=== PATIENT | female | born 1980 | race Caucasian/White ===

== ENCOUNTER 2024-10-11 09:25 | Outpatient (RCR) | payer MEDICAID, SELFPAY | END 2024-10-20 23:59 | disposition home or self-care (01) | LOC: SCTC 09:25 | PROVIDERS: PCP Nurse Practitioner Family; Referring Provider Nurse Practitioner Family; Visit Provider Nurse Practitioner Family | DX: N83.202 Unspecified ovarian cyst, left side (principal); N83.201 Unspecified ovarian cyst, right side; Z80.49 Family history of malignant neoplasm of other genital organs; Z80.8 Family history of malignant neoplasm of other organs or systems; Z80.3 Family history of malignant neoplasm of breast; Z98.84 Bariatric surgery status; E03.9 Hypothyroidism, unspecified; F32.A Depression, unspecified; R74.01 Elevation of levels of liver transaminase levels | CPT/HCPCS: 99212; G0463 ==

== ENCOUNTER → 2024-11-16 | Outpatient (CLI) | payer MEDICAID, SELFPAY ==
--- NOTE | 2024-11-16 16:16 | XR_ITS ---
Examination: Bilateral feet 6 views Technique: AP oblique lateral each foot total 6 views Exam date and time: November 16, 2024 1623 hrs. Indications: Bilateral throbbing foot pain 6 months. Findings: Mild osteopenia No fracture or dislocation involving either foot No erosive or other significant arthritic change involving either foot No plantar bony calcaneal spurs. No cortical bone destruction No opaque foreign bodies Impression: No fracture or dislocation involving either foot No erosive or other significant arthritic change involving either foot
--- NOTE | 2024-11-16 16:16 | XR_ITS ---
Examination: Facial bones 4 views Technique: Yadi Purvis lateral submentovertex facial series 4 views Exam date and time: 06/16/2024 6 1623 hrs. Indications: Injury to the face 4 days ago with nose pain. Findings: Orbital rims appear intact Large polyp or retention cyst in the right maxillary antrum Opacity in the frontal air cells No nasal bone fracture Maxilla mandible intact Impression: No acute facial fracture
== END | disposition home or self-care (01) ==
LOC: CDIM 16:07
PROVIDERS: Referring Provider Nurse Practitioner Family; Visit Provider Nurse Practitioner Family
DX: M79.671 Pain in right foot (principal); M79.672 Pain in left foot; S09.92XA Unspecified injury of nose, initial encounter; X58.XXXA Exposure to other specified factors, initial encounter
CPT/HCPCS: 70150; 73630

== ENCOUNTER → 2024-11-16 | Outpatient (BNVA) | payer MEDICAID, SELFPAY | END | disposition home or self-care (01) | PROVIDERS: PCP Nurse Practitioner Family; Referring Provider Nurse Practitioner Family; Visit Provider Nurse Practitioner Family | DX: M79.672 Pain in left foot (principal); M79.671 Pain in right foot; F32.1 Major depressive disorder, single episode, moderate; F41.9 Anxiety disorder, unspecified; S09.92XA Unspecified injury of nose, initial encounter | CPT/HCPCS: 96372; 99214; J1885 ==

== ENCOUNTER → 2024-12-31 | Outpatient (BNVA) | payer MEDICAID, SELFPAY | END | disposition home or self-care (01) | PROVIDERS: PCP Nurse Practitioner Family; Referring Provider Nurse Practitioner Family; Visit Provider Nurse Practitioner Family | DX: E03.9 Hypothyroidism, unspecified (principal); F41.9 Anxiety disorder, unspecified; D52.9 Folate deficiency anemia, unspecified; E78.5 Hyperlipidemia, unspecified; R94.5 Abnormal results of liver function studies; R79.9 Abnormal finding of blood chemistry, unspecified | CPT/HCPCS: 99214 ==

== ENCOUNTER 2025-01-02 14:08 | Outpatient (RCR) | payer MEDICAID, SELFPAY | END 2025-01-18 23:59 | disposition home or self-care (01) | LOC: SCTC 14:08 | PROVIDERS: PCP Nurse Practitioner Family; Referring Provider Nurse Practitioner Primary Care; Visit Provider Nurse Practitioner Family | DX: D75.89 Other specified diseases of blood and blood-forming organs (principal); Z80.49 Family history of malignant neoplasm of other genital organs; Z80.3 Family history of malignant neoplasm of breast; Z80.8 Family history of malignant neoplasm of other organs or systems; Z98.84 Bariatric surgery status | CPT/HCPCS: 99212; G0463 ==

== ENCOUNTER → 2025-01-22 | Outpatient (BNVA) | payer MEDICAID, SELFPAY | END | disposition home or self-care (01) | PROVIDERS: PCP Nurse Practitioner Family; Referring Provider Nurse Practitioner Family; Visit Provider Nurse Practitioner Family | DX: F51.05 Insomnia due to other mental disorder (principal); F40.9 Phobic anxiety disorder, unspecified; J45.909 Unspecified asthma, uncomplicated; F32.1 Major depressive disorder, single episode, moderate | CPT/HCPCS: 99213 ==

== ENCOUNTER → 2025-02-19 | Outpatient (BNVA) | payer MEDICAID, SELFPAY | END | disposition home or self-care (01) | PROVIDERS: PCP Nurse Practitioner Family; Referring Provider Nurse Practitioner Family; Visit Provider Nurse Practitioner Family | DX: G47.00 Insomnia, unspecified (principal); F33.1 Major depressive disorder, recurrent, moderate; F41.9 Anxiety disorder, unspecified | CPT/HCPCS: 99212; G0463 ==

== ENCOUNTER 2025-02-27 15:55 | Outpatient (RCR) | payer MEDICAID, SELFPAY | END 2025-03-20 23:59 | disposition home or self-care (01) | LOC: SCTC 15:55 | PROVIDERS: PCP Nurse Practitioner Family; Referring Provider Nurse Practitioner Family; Visit Provider Nurse Practitioner Family | DX: Z76.89 Persons encountering health services in other specified circumstances (principal); Z80.49 Family history of malignant neoplasm of other genital organs; Z80.8 Family history of malignant neoplasm of other organs or systems; Z98.84 Bariatric surgery status | CPT/HCPCS: 99212; G0463 ==

== ENCOUNTER 2025-03-27 09:31 | Emergency (ER) | payer MEDICAID, SELFPAY ==
--- NOTE | 2025-03-27 | XR_ITS ---
MRI abdomen, without contrast. MRCP Date and time of exam: March 27, 2025 1440 hours INDICATIONS: Jaundice abdominal pain and distention beginning 4 days ago Technique: Multiple axial and coronal images of the abdomen have been obtained with the Siemens 1.5T MRI scanner. Images obtained included T1 weighted transverse images, T2-weighted transverse images, T2-weighted transverse images fat-suppressed, T2 weighted haste fat suppressed transverse images, T1 weighted images, in and out of phase images, T2-weighted coronal images, breath hold, T2 weighted haze coronal images as well as T2 weighted coronal thick slab images, MRCP. Findings: Hepatomegaly 20 cm Trace ascites Common bile duct 8 mm, no common bile duct stones Pancreatic duct is not dilated No pancreatic mass or peripancreatic edema No hydronephrosis Spleen not enlarged IMPRESSION: Hepatomegaly, 20 cm Trace ascites Common bile duct 8 mm no common bile duct stones
[2025-03-27 09:47] VITALS: BP 119/80; PULSE 105; RESP 16; TEMP 37.3; O2SAT 96
--- NOTE | 2025-03-27 09:55 | XR_ITS ---
Examination: CT chest with intravenous contrast CT abdomen with intravenous contrast CT pelvis with intravenous contrast 2-D coronal and sagittal reconstructions Time of exam: March 27, 2025 12:50 PM INDICATIONS: Onset chest and abdominal pain today CTDI: vol (mGy) : 10.9 DLP: (mGycm): 82 Technique: Multiple axial images of the chest, abdomen and pelvis with intravenous contrast, 3.0 mm slice thickness. Images obtained post intravenous injection Isovue 370 60 cc. 2-D sagittal and coronal reconstructions. Low dose protocols were performed. One or more of the following dose reduction techniques were used; automated exposure control, adjustment of the mA and/or KV according to patient size, use of iterative reconstruction technique. Findings: No thoracic aortic aneurysm dilatation No pulmonary artery filling defects Atelectasis in the right upper lobe No mediastinal lymphadenopathy No pneumonia, pulmonary edema or pleural disease Diffuse fatty infiltration throughout the liver with hepatomegaly 22 cm Absent gallbladder Spleen is not enlarged No pancreatic or adrenal mass No renal or ureteral calculi, no hydronephrosis Mild ascites Diffuse wall thickening involving the colon No uterine or adnexal mass Bladder wall thickening up to 12 mm Grade 1 spondylolisthesis L5 on S1 with advanced degenerative disc disease L5-S1 IMPRESSION: No mediastinal lymphadenopathy No pneumonia, pulmonary edema, pleural disease or pulmonary mass lesions Cirrhosis versus primary hepatocellular disease, hepatomegaly with severe diffuse fatty infiltration throughout the liver Mild ascites Hepatic colopathy pattern Urinary bowel wall thickening up to 12 mm, differential would include cystitis
--- NOTE | 2025-03-27 09:57 | XR_ITS ---
Examination: Abdomen sonogram, Limited Date and time of exam: March 27, 2025 1037 hours INDICATIONS: Jaundice abdominal distention beginning 4 days ago Technique: Real-time valentino scale transabdominal sonographic images of the upper abdomen obtained. Findings: Absent gallbladder Normal common bile duct 0.5 cm Pancreatic head 1.8 cm Liver 19.7 cm fatty infiltration Normal hepatopedal portal venous flow Patent IVC IMPRESSION: Normal common bile duct Moderate hepatomegaly fatty liver no focal liver lesions
[2025-03-27 10:18] LABS: Basophils # (Auto) 0.1 Thou/mm3 (0.0-0.2); Basophils % (Auto) 1 % (0-2.5); Eosinophils # (Auto) 0.1 Thou/mm3 (0.0-0.5); Eosinophils % (Auto) 0 % (0-10); Hematocrit 29.3 % (36.0-46.0); Hemoglobin 10.4 g/dL (12.0-16.0); Immature Granulocytes % (Auto) 1 % (0-0); Immature Granulocytes Auto 0.17 Thou/mm3 (0.00-0.00); Lymphocytes % (Auto) 18 % (10-50); Mean Corpuscular HGB Conc 35.5 g/dl (31.0-37.0); Mean Corpuscular Hemoglobin 37.4 pg (25.0-35.0); Mean Corpuscular Volume 105 fL (80-100); Monocytes # (Auto) 1.9 Thou/mm3 (0.0-0.8); Monocytes % (Auto) 12 % (0-12); Neutrophils # (Auto) 11.3 Thou/mm3 (1.8-7.7); Neutrophils % (Auto) 68 % (37-80); Nucleated Red Blood Cell % 0 /100 WBC (0); Platelet Count 150 Thou/mm3 (140-440); RDW Standard Deviation 62.3 fL (36.4-46.3); Red Blood Count 2.78 Miln/mm3 (4.00-5.20); White Blood Count 16.6 Thou/mm3 (3.6-11.0)
--- NOTE | 2025-03-27 10:32 | PC.NURSE ---
Patient came to ED due increased jaundice skin and abdominal 7/10 pain X4 days. Patient is A&O X4. Patient is a CTC treatment and just had a bone marrow biopsy last week. Is still waiting for dx. POC updated.
[2025-03-27 10:38] LABS: Alanine Aminotransferase 55 U/L (10-49); Albumin, Serum 3.5 gm/dL (3.5-5.0); Albumin/Globulin Ratio 0.9 (1.2-2.2); Alkaline Phosphatase 424 U/L (46-116); Ammonia 45 uMol/L (11-32); Anion Gap 10 (7-16); Aspartate Amino Transferase 223 U/L (0-34); BUN/Creatinine Ratio 12 Ratio (12-20); Bilirubin,Total 7.7 mg/dL (0.3-1.2); Blood Urea Nitrogen 6 mg/dL (9-23); Calcium 8.4 mg/dL (8.3-10.6); Calcium (Corrected) 8.8 mg/dL (8.5-10.1); Carbon Dioxide 26.3 mMol/L (20.0-31.0); Chloride 101 mMol/L (98-107); Creatinine (Component) 0.5 mg/dL (0.6-1.3); Estimated Creatinine Clearance 151.7 mL/min (>60); Globulin 4.1 gm/dL (2.3-3.5); Glucose 131 mg/dL (74-106); Lipase 39 U/L (12-53); Osmolality,Calculated 273 (275-295); Potassium 3.2 mMol/L (3.4-5.1); Sodium 137 mMol/L (136-145); Total Protein 7.6 gm/dL (5.7-8.2); eGFR > 60 See Note
[2025-03-27 10:42] LABS: INR 1.2 (0.9-1.3); Partial Thromboplastin Time 29.6 Seconds (22.0-36.0); Prothrombin Time 12.7 Seconds (9.0-12.2)
[2025-03-27 10:58] VITALS: BP 113/83; PULSE 91; RESP 18; TEMP 36.9; O2SAT 96
[2025-03-27 11:00] VITALS: BP 109/88; PULSE 95; RESP 18; TEMP 36.6; O2SAT 95
[2025-03-27 12:01] LABS: Collection Type, Urine Clean Catch
[2025-03-27 12:12] LABS: HCG Qualitative,Urine Negative
[2025-03-27 12:28] LABS: Hepatitis A Antibody IgM Non Reactive (Non React); Hepatitis B Core Antibody IgM Non Reactive (Non React); Hepatitis B Surface Antigen Non Reactive (Non React); Hepatitis C Antibody Non Reactive (Non React)
[2025-03-27 12:28] LABS: Bacteria,Urine 1+; Bilirubin,Urine 2+ (Negative); Blood,Urine Negative (Negative); Clarity,Urine Turbid (Clear/Hazy); Color,Urine Drk-Yellow (Lt Yel-Yel); Glucose, Urine Negative (Negative); Ketones,Urine Negative (Negative); Leukocyte Esterase,Urine Positive (Negative); Nitrite,Urine Positive (Negative); Protein,Urine 1+ (Neg - Trace); RBC,Urine 14 /hpf (0-3); Specific Gravity,Urine 1.028 (1.001-1.035); Squamous Epithelial Cell,Urine 6 /hpf (0-5); Transitional Epi Cells,Urine 2 /hpf (0-5); WBC,Urine 70 /hpf (0-5)
[2025-03-27 13:15] LABS: Culture Indicated,Urine Yes
[2025-03-27 13:28] LABS: Immature Reticulocyte Fraction 30.3 % (3.0-15.9); Reticulocyte % (Auto) 3.3 % (0.5-1.5); Reticulocyte Absolute Auto 92.5 Biln/L (25.0-75.0); Reticulocyte Hgb Content 40.8 pg (28.0-35.0)
[2025-03-27 13:38] LABS: LDH (Lactate Dehydrogenase) 375 U/L (120-246)
[2025-03-27] MEDS: HYDROmorphone INJ 2 MG/ML VIAL 1 MG IVP (13:38)
[2025-03-27] MEDS: ONDANSETRON INJ 2 MG/ML INJ 2 ML 4 MG IV ×2 (13:38→16:08)
[2025-03-27 13:55] VITALS: BP 110/68; PULSE 95; RESP 18; TEMP 36.9; O2SAT 95
--- NOTE | 2025-03-27 13:58 | PD.EDABDPN ---
ED Abdominal Pain RME/HPI General Chief Complaint: Abdominal Pain Stated complaint: FEELS JAUNDICED, ABD BLOATED X 4 DAYS Arrival date/time: 03/27/25 09:31 Limitations: no limitations RME / HPI RME / HPI narrative: 44 year old female presents to the emergency department for evaluation of abdominal pain that began earlier today. She describes the pain as diffuse, involving the entire abdomen, and accompanied by a sensation of bloating and feeling full of fluid. She also reports that she has recently noticed yellowing of her skin. The patient states that she has been in contact with her primary care provider regarding her symptoms and has an EGD scheduled in two months. She has a remote history of jaundice in the year 1999, at which time she was found to have gallbladder disease and subsequently underwent a cholecystectomy. She reports that her jaundice resolved following the surgery and she has not experienced similar symptoms until now. She denies any associated nausea, vomiting, fever, chills, chest pain, cough, shortness of breath, or urinary symptoms. No recent travel, sick contacts, or known exposure to hepatitis or other infectious agents. No changes in bowel habits reported. Related Data Previous Rx's ?Medication ?Instructions ?Recorded folic acid 1 mg tablet 1 mg PO QDAY #90 tabs 08/27/24 semaglutide 2 mg/dose (8 mg/3 mL) 2 mg (0.75 mL) subcut QWEEK #3 mL 08/27/24 subcutaneous pen injector (Ozempic) celecoxib 200 mg capsule (Celebrex) 200 mg PO QDAY #30 caps 11/16/24 levothyroxine 125 mcg tablet 125 mcg PO QDAY #60 tabs 12/31/24 albuterol sulfate 90 mcg/actuation 2 inh inhalation Q6H PRN shortness 01/22/25 aerosol inhaler of breath or wheezing #8.5 grams fluticasone 100 mcg-salmeterol 50 1 inh inhalation BID #60 ea 01/22/25 mcg/dose blistr powdr for inhalation (Advair Diskus) fluoxetine 20 mg capsule (Prozac) 20 mg PO QDAY #30 caps 02/21/25 ciprofloxacin HCl 500 mg tablet 500 mg PO BID #20 tabs 03/27/25 (Cipro) furosemide 20 mg tablet (Lasix) 20 mg PO QAM #30 tabs 03/27/25 spironolactone 50 mg tablet 50 mg PO QDAY #30 tabs 03/27/25 (Aldactone) Allergies Allergy/AdvReac Type Severity Reaction Status Date / Time NSAIDS (Non-Steroidal Allergy Severe BLOOD NOSE Verified 03/27/25 09:34 Anti-Inflamma Review of Systems Review of Systems Narrative Review of Systems: GEN: No fever, no chills, no weight loss EYES: No discharge, no visual changes, no pain HEENT: No ear pain, no congestion, no sore throat PULM: No shortness of breath, no cough, no congestion CV: No chest pain, no dyspnea on exertion, no palpitations GI: No nausea, no vomiting, no diarrhea, +pain, +distention, no constipation : No frequency, no urgency, no dysuria MUSC/SKEL: No joint pain, no back pain SKIN: No rash, +jaundice NEURO: No weakness, no headache Past Medical History Past Medical History CARDIAC: Negative Cardiac Disorders or Congestive Heart Failure RESPIRATORY: Positive Respiratory Disorders and Asthma; Negative Chronic Obstructive Pulmonary Disease (COPD) GENITOURINARY: Negative Renal Disease ENDOCRINE: Positive Hypothyroidism; Negative Diabetes Mellitus Type 1 or Diabetes Mellitus Type 2 HEMATOLOGIC: Negative Sickle Cell Disease PSYCHO/SOCIAL: Positive Depression Social History SMOKING STATUS: Never smoker SECOND HAND EXPOSURE: No ED Exam General Limitations: Present no limitations General appearance: Present alert and in no apparent distress Head Head exam: Present atraumatic Eye Eye exam: Present normal appearance, PERRL and EOMI ENT ENT exam: Present normal exam, normal oropharynx and mucous membranes moist Neck Neck exam: Present normal inspection, full ROM and trachea midline Chest Chest inspection: Present normal inspection and symmetric chest wall rise Respiratory Respiratory exam: Present normal lung sounds bilaterally Cardiovascular Cardiovascular exam: Present regular rate, normal rhythm and normal heart sounds Abdominal Exam Abdominal exam: Present soft, distention, tenderness (diffuse ) and normal bowel sounds Extremities Exam Extremities exam: Present normal inspection and full ROM Back Exam Back exam: Present normal inspection and full ROM Neurological Exam Neurological exam: Present alert, oriented X3 and CN II-XII intact Psychiatric Psychiatric exam: Present normal affect and normal mood Skin Skin exam: Present warm, dry, intact and other (Jaundice ) Course Quality Measures none Orders Category Date Time Status CT Screening NOW Care 03/27/25 09:56 Active MRI Screening NOW Care 03/27/25 13:[address] chest abdomen pelvis w Stat Exams 03/27/25 09:55 Completed MR MRCP Stat Exams 03/27/25 Completed US gall bladder Stat Exams 03/27/25 09:57 Completed Ammonia Stat Lab 03/27/25 10:06 Completed CBC Stat Lab 03/27/25 10:06 Completed Comprehensive Metabolic Panel Stat Lab 03/27/25 10:06 Completed HCG Qualitative,Urine Stat Lab 03/27/25 10:45 Completed Hepatitis Acute Panel Stat Lab 03/27/25 10:06 Completed LDH (Lactate Dehydrogenase) Stat Lab 03/27/25 10:06 Completed Lipase Stat Lab 03/27/25 10:06 Completed Partial Thromboplastin Time Stat Lab 03/27/25 10:06 Completed Prothrombin Time with INR Stat Lab 03/27/25 10:06 Completed Reticulocyte Count Stat Lab 03/27/25 10:06 Completed Type and Screen Stat Lab 03/27/25 10:06 Completed UA, C/S IF [Urinalysis, C/S if Indicated] Stat Lab 03/27/25 10:45 Completed Urine Culture Stat Lab 03/27/25 10:45 Received Benzonatate [Tessalon] Med 03/27/25 14:32 Discontinued 200 mg PO X1 ONE HYDROmorphone INJ [Dilaudid Inj] Med 03/27/25 13:13 Discontinued 1 mg IVP X1 ONE Ondansetron Inj [Zofran Inj] Med 03/27/25 13:13 Discontinued 4 mg IV X1 ONE Ondansetron Inj [Zofran Inj] Med 03/27/25 15:49 Discontinued 4 mg IV X1 ONE cefTRIAXone [Rocephin] 2 gm Med 03/27/25 18:08 Active SODIUM CHLORIDE 0.9% (Popper) [Ns 0.9% (P)] 50 ml IV X1 Vital Signs Vital signs: Vital Signs Temperature 99.2 F 03/27/25 09:47 Pulse Rate 105 H 03/27/25 09:47 Respiratory Rate 16 03/27/25 09:47 Blood Pressure 119/80 03/27/25 09:47 Pulse Oximetry (%) 96 03/27/25 09:47 Oxygen Delivery Method Room Air 03/27/25 09:47 Pulse ox is 96% on room air which is adequate. Abdominal Pain MDM MDM Narrative MDM Narrative:: Grazyna Pradhan am scribing for and in the presence of Dr. Austin. 44 year old female presented to the ED for painful jaundice and has a history of cholecystectomy performed in 1999 for similar symptoms, which resolved at that time. Given the current presentation of abdominal pain, bloating, and jaundice, there is concern for possible CBD stone formation despite prior cholecystectomy. Post-cholecystectomy choledocholithiasis remains a differential, especially in the context of recurrent symptoms. The patient also has a history of severe anemia, raising concern for a possible underlying infectious or hemolytic process contributing to pigment stone formation and biliary obstruction. Hemolysis as a potential cause of recurrent pigment stone formation is being considered. Plan for LDH, reticulocyte count, MRCP, and pain management. On reassessment, the patient reports she is a heavy drinker. I highly advised the patient stop drinking alcohol and keep her outpatient EGD scheduled in 2 months. Patient will be discharged home diagnosed with liver cirrhosis and [place]. Patient data External records reviewed:: [facility] previous records (I reviewed ED visit on 02/06/2022 ) Clinical information provided by:: patient Social determinants that could affect healthcare access:: none Patient has the following chronic illnesses:: s/p gastric bypass, s/p cholecystectomy How is presenting disease/condition affected by chronic disease/condition?: exacerbated by Evaluation data The following diagnostics were reviewed and interpreted by me:: lab results and radiology exam(s) Lab and/or radiology exams considered but not ordered:: None Interpretation Summary: Ordering Physician: Lucretia Rowell MD Date of Service: 03/27/25 Procedure(s): MR MRCP Accession Number(s): [id number] cc: Lucretia Rowell MD; Aleksey Rebolledo MD; Korina Jay ([facility])~ MRI abdomen, without contrast. MRCP Date and time of exam: March 27, 2025 1440 hours INDICATIONS: Jaundice abdominal pain and distention beginning 4 days ago Technique: Multiple axial and coronal images of the abdomen have been obtained with the Siemens 1.5T MRI scanner. Images obtained included T1 weighted transverse images, T2-weighted transverse images, T2-weighted transverse images fat-suppressed, T2 weighted haste fat suppressed transverse images, T1 weighted images, in and out of phase images, T2-weighted coronal images, breath hold, T2 weighted haze coronal images as well as T2 weighted coronal thick slab images, MRCP. Findings: Hepatomegaly 20 cm Trace ascites Common bile duct 8 mm, no common bile duct stones Pancreatic duct is not dilated No pancreatic mass or peripancreatic edema No hydronephrosis Spleen not enlarged IMPRESSION: Hepatomegaly, 20 cm Trace ascites Common bile duct 8 mm no common bile duct stones Dictated By: Aleksey Rebolledo MD Signed By: <Electronically signed by Aleksey Rebolledo MD in OV> 03/27/25 1522 Ordering Physician: Devin (SABRINA)Evaristo NP Date of Service: 03/27/25 Procedure(s): US gall bladder Accession Number(s): [id number] cc: Devin (SABRINA),Evaristo BENNETT; Aleksey Rebolledo MD; Korina Jay ([facility])~ Examination: Abdomen sonogram, Limited Date and time of exam: March 27, 2025 1037 hours INDICATIONS: Jaundice abdominal distention beginning 4 days ago Technique: Real-time valentino scale transabdominal sonographic images of the upper abdomen obtained. Findings: Absent gallbladder Normal common bile duct 0.5 cm Pancreatic head 1.8 cm Liver 19.7 cm fatty infiltration Normal hepatopedal portal venous flow Patent IVC IMPRESSION: Normal common bile duct Moderate hepatomegaly fatty liver no focal liver lesions Dictated By: Aleksey Rebolledo MD Signed By: <Electronically signed by Aleksey Rebolledo MD in OV> 03/27/25 1055 Ordering Physician: Devin CHEN)Evaristo NP Date of Service: 03/27/25 Procedure(s): CT chest abdomen pelvis w Accession Number(s): [id number] cc: Evaristo Beltran NP, NP; Aleksey Rebolledo MD; Korina Jay ([facility])~ Examination: CT chest with intravenous contrast CT abdomen with intravenous contrast CT pelvis with intravenous contrast 2-D coronal and sagittal reconstructions Time of exam: March 27, 2025 12:50 PM INDICATIONS: Onset chest and abdominal pain today CTDI: vol (mGy) : 10.9 DLP: (mGycm): 82 Technique: Multiple axial images of the chest, abdomen and pelvis with intravenous contrast, 3.0 mm slice thickness. Images obtained post intravenous injection Isovue 370 60 cc. 2-D sagittal and coronal reconstructions. Low dose protocols were performed. One or more of the following dose reduction techniques were used; automated exposure control, adjustment of the mA and/or KV according to patient size, use of iterative reconstruction technique. Findings: No thoracic aortic aneurysm dilatation No pulmonary artery filling defects Atelectasis in the right upper lobe No mediastinal lymphadenopathy No pneumonia, pulmonary edema or pleural disease Diffuse fatty infiltration throughout the liver with hepatomegaly 22 cm Absent gallbladder Spleen is not enlarged No pancreatic or adrenal mass No renal or ureteral calculi, no hydronephrosis Mild ascites Diffuse wall thickening involving the colon No uterine or adnexal mass Bladder wall thickening up to 12 mm Grade 1 spondylolisthesis L5 on S1 with advanced degenerative disc disease L5-S1 IMPRESSION: No mediastinal lymphadenopathy No pneumonia, pulmonary edema, pleural disease or pulmonary mass lesions Cirrhosis versus primary hepatocellular disease, hepatomegaly with severe diffuse fatty infiltration throughout the liver Mild ascites Hepatic colopathy pattern Urinary bowel wall thickening up to 12 mm, differential would include cystitis Dictated By: Aleksey Rebolledo MD Signed By: <Electronically signed by Aleksey Rebolledo MD in OV> 03/27/25 9696 Medications / Prescriptions Medications or Prescriptions considered but not ordered:: None Medication administrations:: Medication Administration History Ceftriaxone Sodium 2 gm/ (Sodium Chloride) 50 mls @ 100 mls/hr IV X1 ONE Stop: 03/27/25 18:37 Last Admin: 03/27/25 18:22 Dose: 100 mls/hr Discontinued Medications Benzonatate (Benzonatate 100 Mg Capsule) 200 mg PO X1 ONE; Protocol Stop: 03/27/25 14:33 Last Admin: 03/27/25 14:36 Dose: Not Given Documented By: RD Non-Admin Reason: Wrong Patient Hydromorphone HCl (Hydromorphone Inj 2 Mg/Ml Vial) 1 mg IVP X1 ONE Stop: 03/27/25 13:14 Last Admin: 03/27/25 13:38 Dose: 1 mg Documented By: ER Ondansetron HCl (Ondansetron Inj 2 Mg/Ml Inj 2 Ml) 4 mg IV X1 ONE; Protocol Stop: 03/27/25 13:14 Last Admin: 03/27/25 13:38 Dose: 4 mg Documented By: ER Ondansetron HCl (Ondansetron Inj 2 Mg/Ml Inj 2 Ml) 4 mg IV X1 ONE; Protocol Stop: 03/27/25 15:50 Last Admin: 03/27/25 16:08 Dose: 4 mg Documented By: ER See above Consultations Consultation(s) initiated? (list below): No Diagnosis Differential diagnosis abdominal pain: abdominal pain, constipation, gastroenteritis and other (liver cirrhosis, [place], jaundice ) Most likely diagnosis given after review of the tests above:: Alcoholic liver cirrhosis SBP Fatty liver Admission Indicated Admission indicated?: not indicated Admission Request Was there a request for admission?: No Disposition Plan Disposition Plan: Discharge Discharge Attestation Discharge Attestation: The patient and all family members were given an opportunity to ask questions and understood the discharge instructions. Discharge instructions specifically effects, indications for sooner follow up or return to the emergency department, and the expected course of current diagnosis. Patient condition: Stable Discharge Plan Plan Patient Disposition: HOME (Self Care) Patient condition on transfer: Stable Prescriptions/Referrals Prescriptions/Med Rec: New furosemide [Lasix] 20 mg tablet 20 mg PO QAM Qty: 30 0RF spironolactone [Aldactone] 50 mg tablet 50 mg PO QDAY Qty: 30 0RF ciprofloxacin HCl [Cipro] 500 mg tablet 500 mg PO BID Qty: 20 0RF No Action levothyroxine 125 mcg tablet 125 mcg PO QDAY Qty: 60 0RF Ozempic 2 mg/dose (8 mg/3 mL) pen injector 2 mg subcut QWEEK Qty: 3 2RF folic acid 1 mg tablet 1 mg PO QDAY Qty: 90 0RF celecoxib [Celebrex] 200 mg capsule 200 mg PO QDAY Qty: 30 0RF fluticasone propion-salmeterol [Advair Diskus] 100-50 mcg/dose blister with device 1 inh inhalation BID Qty: 60 2RF albuterol sulfate 90 mcg/actuation HFA aerosol inhaler 2 inh inhalation Q6H PRN (Reason: shortness of breath or wheezing) Qty: 8.5 3RF fluoxetine [Prozac] 20 mg capsule 20 mg PO QDAY Qty: 30 0RF Referrals: Misty [facility] [employer],Korina Alvarez [employer]ING ENGINEER [Primary Care Provider] - In 1 week Problem List Clinical Impression: ALC (alcoholic liver cirrhosis), SBP (spontaneous bacterial peritonitis), Fatty liver Patient/Caregiver Discharge Instructions Discharge Activity: activity as tolerated Other Activity Instructions:: Make sure to see the GI specialist for further evaluation Back to the ER if you feel any worse Do not drink alcohol anymore Education Materials: Alcoholism Resources, Alcohol Addiction, ED Cirrhosis Print Language: Albanian Stand Alone Forms: Kya Award Info., Patient Portal Info Letter
[2025-03-27 15:40] VITALS: BP 121/80; PULSE 85; RESP 16; TEMP 36.8; O2SAT 95
[2025-03-27] MEDS: cefTRIAXone 2 GM in SODIUM CHLORIDE 0.9% (Popper) 50 ML IV (18:22)
[2025-03-27 18:40] VITALS: BP 117/77; PULSE 80; RESP 17; TEMP 36.7; O2SAT 94
== END 2025-03-27 19:08 | disposition home or self-care (01) ==
PROVIDERS: Nurse Practitioner Primary Care; Emergency Provider Emergency Medicine; PCP Nurse Practitioner Family
DX: K70.31 Alcoholic cirrhosis of liver with ascites (principal); K76.0 Fatty (change of) liver, not elsewhere classified; K65.2 Spontaneous bacterial peritonitis
CPT/HCPCS: 36415; 71260; 74177; 76705; 80053; 80074; 81001; 81025; 82140; 83615; 83690; 85025; 85046; 85610; 85730; 86850; 86900; 86901; 87077; 87086; 87186; 96365; 96375; 96376; 99285; A4649; J0696; J1171; J2405; J7030; Q9967; S8037; 74181

== ENCOUNTER → 2025-04-01 | Outpatient (BNVA) | payer MEDICAID, SELFPAY | END | disposition home or self-care (01) | PROVIDERS: PCP Nurse Practitioner Family; Referring Provider Nurse Practitioner Family; Visit Provider Nurse Practitioner Family | DX: K70.31 Alcoholic cirrhosis of liver with ascites (principal); K76.0 Fatty (change of) liver, not elsewhere classified; M25.50 Pain in unspecified joint | CPT/HCPCS: 99215 ==

== ENCOUNTER → 2025-04-08 | Outpatient (BNVA) | payer MEDICAID, SELFPAY | END | disposition home or self-care (01) | PROVIDERS: PCP Nurse Practitioner Family; Referring Provider Nurse Practitioner Family; Visit Provider Nurse Practitioner Family | DX: Z71.2 Person consulting for explanation of examination or test findings (principal); K70.31 Alcoholic cirrhosis of liver with ascites; E03.9 Hypothyroidism, unspecified; E78.5 Hyperlipidemia, unspecified; M25.50 Pain in unspecified joint | CPT/HCPCS: 99212; G0463 ==

== ENCOUNTER 2025-04-17 13:53 | Observation (INO) | payer MEDICAID, SELFPAY ==
[2025-04-17 14:05] VITALS: BP 112/75; PULSE 106; RESP 20; TEMP 36.9; O2SAT 97
--- NOTE | 2025-04-17 14:09 | PD.EDRME ---
Rapid Medical Screening Exam RME Arrival date/time: 04/17/25 13:53 Chief Complaint: Recheck/Abnormal Lab/Rx Time Seen by Provider: 04/17/25 14:09 RME Narrative: 44-year-old female returns. Patient was discharged with Lasix and returns with a complaint of abdominal pain, bloating, edema to upper and lower extremities.
--- NOTE | 2025-04-17 14:21 | XR_ITS ---
Examination: Abdomen sonogram, Limited Date and time of exam: April 17, 2025 1443 hours INDICATIONS: Abdominal distention bloating beginning 3 weeks ago, recent diagnosis cirrhosis Technique: Real-time valentino scale transabdominal sonographic images of the upper abdomen obtained. Findings: Mild ascites IMPRESSION: Mild ascites
[2025-04-17 14:39] LABS: Basophils # (Auto) 0.2 Thou/mm3 (0.0-0.2); Basophils % (Auto) 1 % (0-2.5); Eosinophils # (Auto) 0.2 Thou/mm3 (0.0-0.5); Eosinophils % (Auto) 1 % (0-10); Hematocrit 32.9 % (36.0-46.0); Hemoglobin 11.4 g/dL (12.0-16.0); Immature Granulocytes % (Auto) 1 % (0-0); Immature Granulocytes Auto 0.18 Thou/mm3 (0.00-0.00); Lymphocytes # (Auto) 4.1 Thou/mm3 (1.0-4.8); Lymphocytes % (Auto) 16 % (10-50); Mean Corpuscular HGB Conc 34.7 g/dl (31.0-37.0); Mean Corpuscular Hemoglobin 38.8 pg (25.0-35.0); Mean Corpuscular Volume 112 fL (80-100); Monocytes # (Auto) 1.9 Thou/mm3 (0.0-0.8); Monocytes % (Auto) 8 % (0-12); Neutrophils # (Auto) 18.5 Thou/mm3 (1.8-7.7); Neutrophils % (Auto) 74 % (37-80); Nucleated Red Blood Cell % 0 /100 WBC (0); Platelet Count 409 Thou/mm3 (140-440); RDW Standard Deviation 50.4 fL (36.4-46.3); Red Blood Count 2.94 Miln/mm3 (4.00-5.20); White Blood Count 25.1 Thou/mm3 (3.6-11.0)
[2025-04-17 15:01] LABS: Alanine Aminotransferase 31 U/L (10-49); Albumin, Serum 2.9 gm/dL (3.5-5.0); Albumin/Globulin Ratio 0.7 (1.2-2.2); Alkaline Phosphatase 191 U/L (46-116); Anion Gap 10 (7-16); Aspartate Amino Transferase 153 U/L (0-34); BUN/Creatinine Ratio 11 Ratio (12-20); Bilirubin,Total 5.6 mg/dL (0.3-1.2); Blood Urea Nitrogen 8 mg/dL (9-23); Calcium (Corrected) 9.9 mg/dL (8.5-10.1); Chloride 98 mMol/L (98-107); Creatinine (Component) 0.7 mg/dL (0.6-1.3); Glucose 92 mg/dL (74-106); Lipase 38 U/L (12-53); Osmolality,Calculated 266 (275-295); Potassium 3.3 mMol/L (3.4-5.1); Sodium 134 mMol/L (136-145); Total Protein 6.9 gm/dL (5.7-8.2); eGFR > 60 See Note
[2025-04-17 15:29] LABS: Collection Type, Urine Clean Catch
[2025-04-17 15:41] LABS: Bacteria,Urine Rare; Bilirubin,Urine 1+ (Negative); Blood,Urine Negative (Negative); Color,Urine Drk-Yellow (Lt Yel-Yel); Glucose, Urine Negative (Negative); Ketones,Urine Negative (Negative); Leukocyte Esterase,Urine Positive (Negative); Nitrite,Urine Negative (Negative); Protein,Urine Trace (Neg - Trace); RBC,Urine 2 /hpf (0-3); Specific Gravity,Urine 1.021 (1.001-1.035); Squamous Epithelial Cell,Urine 7 /hpf (0-5); WBC,Urine 6 /hpf (0-5)
[2025-04-17 15:43] LABS: Clarity,Urine Hazy (Clear/Hazy)
--- NOTE | 2025-04-17 22:51 | XR_ITS ---
Examination: PA lateral chest 2 views TECHNIQUE: Upright PA lateral chest 2 views Date and time: April 17, 2025 11:25 PM INDICATIONS: Leukocytosis today abdominal pelvic pain FINDINGS: Pneumonia right base Normal heart size Minor blunting of the left lateral costophrenic angle Intact osseous structures IMPRESSION: Right base pneumonia
--- NOTE | 2025-04-17 22:57 | PD.EDABDPN ---
ED Abdominal Pain RME/HPI General Chief Complaint: Recheck/Abnormal Lab/Rx Stated complaint: I'VE BEEN BEE W/ ABD SWELLING/DISTENTION Time seen by provider: 04/17/25 14:09 Arrival date/time: 04/17/25 13:53 44-year-old female with a past medical history of alcoholic cirrhosis presents to the ED with worsening abdominal pain, swelling to her abdomen and swelling to her lower extremities. She denies fever or chills. She states she is very uncomfortable due to the pain. She feels weakness and fatigue. Source: patient Mode of arrival: ambulatory Limitations: no limitations RME / HPI RME / HPI narrative: 44-year-old female returns. Patient was discharged with Lasix and returns with a complaint of abdominal pain, bloating, edema to upper and lower extremities. Related Data Previous Rx's ?Medication ?Instructions ?Recorded folic acid 1 mg tablet 1 mg PO QDAY #90 tabs 08/27/24 albuterol sulfate 90 mcg/actuation 2 inh inhalation Q6H PRN shortness 01/22/25 aerosol inhaler of breath or wheezing #8.5 grams fluticasone 100 mcg-salmeterol 50 1 inh inhalation BID #60 ea 01/22/25 mcg/dose blistr powdr for inhalation (Advair Diskus) furosemide 20 mg tablet (Lasix) 20 mg PO QAM #30 tabs 03/27/25 spironolactone 50 mg tablet 50 mg PO QDAY #30 tabs 03/27/25 (Aldactone) levothyroxine 125 mcg tablet 125 mcg PO QDAY #60 tabs 04/16/25 Allergies Allergy/AdvReac Type Severity Reaction Status Date / Time NSAIDS (Non-Steroidal Allergy Severe BLOOD NOSE Verified 04/17/25 13:59 Anti-Inflamma Review of Systems Review of Systems Systems Reviewed: All systems reviewed, normal except as documented Past Medical History Past Medical History CARDIAC: Negative Cardiac Disorders or Congestive Heart Failure RESPIRATORY: Positive Asthma; Negative Chronic Obstructive Pulmonary Disease (COPD) GENITOURINARY: Negative Renal Disease ENDOCRINE: Positive Hypothyroidism; Negative Diabetes Mellitus Type 1 or Diabetes Mellitus Type 2 HEMATOLOGIC: Negative Sickle Cell Disease PSYCHO/SOCIAL: Positive Depression Social History SMOKING STATUS: Never smoker SECOND HAND EXPOSURE: No ED Exam Narrative Physical exam: Alert and oriented 44-year-old female, appears jaundiced with scleral icterus. Skin is warm and dry with jaundice. Lungs are clear, regular rate and rhythm without murmurs. Abdomen is soft with moderate generalized tenderness worse in the left and right upper quadrants. No rebound or guarding. No CVA tenderness. 3+ pitting edema noted to bilateral lower extremities. General Limitations: Present no limitations General appearance: Present alert Eye Eye exam: Present scleral icterus Course Course Course Narrative: 44-year-old female with a past medical history of alcoholic cirrhosis presents to the ED with worsening abdominal pain, swelling to her abdomen and swelling to her lower extremities. She denies fever or chills. She states she is very uncomfortable due to the pain. She feels weakness and fatigue. Alert and oriented 44-year-old female, appears jaundiced with scleral icterus. Skin is warm and dry with jaundice. Lungs are clear, regular rate and rhythm without murmurs. Abdomen is soft with moderate generalized tenderness worse in the left and right upper quadrants. No rebound or guarding. No CVA tenderness. 3+ pitting edema noted to bilateral lower extremities. Vital signs blood pressure 112/75, pulse 106, respirations 20 nonlabored, temp is 98.4, O2 sat 97% on room air. Labs reveal a white count of 25.1, mildly low H&H of 11.4/32.9, platelets are normal at 409. ANC is elevated at 18.5. Chemistry panel reveals sodium 134, potassium 3.3, normal chloride and CO2. Renal function is normal total bili is increased at 5.4 which is improved from 7.7 on 03/27/2025. AST elevated at 153 with a normal ALT of 31. Alk phos is elevated at 191. Albumin is low at 2.9, lipase normal at 38. Urinalysis reveals dark yellow urine with a pH of 6.0 and a specific gravity of 1.021 with 1+ bilirubin, 4.0 urobilinogen, 6 WBCs, 7 squamous epithelial cells with rare bacteria. Abdominal ultrasound reveals: Findings: Mild ascites. IMPRESSION: Mild ascites Quality Measures none Orders Category Date Time Status Consult to Gastroenterology Stat Cons 04/17/25 22:53 Ordered US abdomen limited Stat Exams 04/17/25 14:21 Completed XR chest 2V Stat Exams 04/17/25 22:51 Ordered Blood Culture (Lab) Stat Lab 04/17/25 22:51 Ordered CBC Stat Lab 04/17/25 14:20 Completed Comprehensive Metabolic Panel Stat Lab 04/17/25 14:20 Completed HCG Qualitative,Urine Stat Lab 04/17/25 22:52 Ordered Lactic Acid [Lactate (Lactic Acid)] Stat Lab 04/17/25 22:51 Ordered Lipase Stat Lab 04/17/25 14:20 Completed PT [Prothrombin Time with INR] Stat Lab 04/17/25 22:51 Ordered PTT [Partial Thromboplastin Time] Stat Lab 04/17/25 22:51 Ordered Urinalysis Stat Lab 04/17/25 15:05 Completed Urine Culture Stat Lab 04/17/25 22:52 Ordered cefTRIAXone [Rocephin] 2 gm Med 04/17/25 22:52 Ordered SODIUM CHLORIDE 0.9% (Popper) [Ns 0.9% (P)] 50 ml IV QDAY Vital Signs Vital signs: Vital Signs Temperature 98.4 F 04/17/25 14:05 Pulse Rate 106 H 04/17/25 14:05 Respiratory Rate 20 04/17/25 14:05 Blood Pressure 112/75 04/17/25 14:05 Pulse Oximetry (%) 97 04/17/25 14:05 Oxygen Delivery Method Room Air 04/17/25 14:05 Abdominal Pain MDM MDM Narrative MDM Narrative:: 44-year-old female with a past medical history of alcoholic cirrhosis presents to the ED with worsening abdominal pain, swelling to her abdomen and swelling to her lower extremities. She denies fever or chills. She states she is very uncomfortable due to the pain. She feels weakness and fatigue. Alert and oriented 44-year-old female, appears jaundiced with scleral icterus. Skin is warm and dry with jaundice. Lungs are clear, regular rate and rhythm without murmurs. Abdomen is soft with moderate generalized tenderness worse in the left and right upper quadrants. No rebound or guarding. No CVA tenderness. 3+ pitting edema noted to bilateral lower extremities. Vital signs blood pressure 112/75, pulse 106, respirations 20 nonlabored, temp is 98.4, O2 sat 97% on room air. Labs reveal a white count of 25.1, mildly low H&H of 11.4/32.9, platelets are normal at 409. ANC is elevated at 18.5. Chemistry panel reveals sodium 134, potassium 3.3, normal chloride and CO2. Renal function is normal total bili is increased at 5.4 which is improved from 7.7 on 03/27/2025. AST elevated at 153 with a normal ALT of 31. Alk phos is elevated at 191. Albumin is low at 2.9, lipase normal at 38. Urinalysis reveals dark yellow urine with a pH of 6.0 and a specific gravity of 1.021 with 1+ bilirubin, 4.0 urobilinogen, 6 WBCs, 7 squamous epithelial cells with rare bacteria. Abdominal ultrasound reveals: Findings: Mild ascites. IMPRESSION: Mild ascites Findings are consistent with bacterial peritonitis. Dr. Gipson, superintendent operations division was contacted who indicates workup is significant for probable subacute bacterial peritonitis and would like pancultures obtained, PT/INR/PTT ordered as well as Rocephin 2 g IV daily. He agrees to consult on the patient with admission by the residents. Patient data External records reviewed:: [facility] previous records Clinical information provided by:: patient Social determinants that could affect healthcare access:: none Patient has the following chronic illnesses:: Alcoholic cirrhosis, jaundice, ascites, hyperlipidemia, folic acid deficiency, vitamin D deficiency, hypothyroidism How is presenting disease/condition affected by chronic disease/condition?: exacerbated by (Alcoholic cirrhosis and ascites) Evaluation data The following diagnostics were reviewed and interpreted by me:: lab results and radiology exam(s) Lab and/or radiology exams considered but not ordered:: N/A Interpretation Summary: Labs reveal a white count of 25.1, mildly low H&H of 11.4/32.9, platelets are normal at 409. ANC is elevated at 18.5. Chemistry panel reveals sodium 134, potassium 3.3, normal chloride and CO2. Renal function is normal total bili is increased at 5.4 which is improved from 7.7 on 03/27/2025. AST elevated at 153 with a normal ALT of 31. Alk phos is elevated at 191. Albumin is low at 2.9, lipase normal at 38. Urinalysis reveals dark yellow urine with a pH of 6.0 and a specific gravity of 1.021 with 1+ bilirubin, 4.0 urobilinogen, 6 WBCs, 7 squamous epithelial cells with rare bacteria. Abdominal ultrasound reveals: Findings: Mild ascites. IMPRESSION: Mild ascites Medications / Prescriptions Medications or Prescriptions considered but not ordered:: N/A Medication administrations:: Medication Administration History Ceftriaxone Sodium 2 gm/ (Sodium Chloride) 50 mls @ 100 mls/hr IV QDAY EDWINA Stop: 04/24/25 22:51 Ceftriaxone 2 g IV Consultations Consultation(s) initiated? (list below): Yes Consultation #1 (Physician, Specialty, Details): Dr. Gipson, gastroenterology, agrees to consult on admitted patient. Consultation #2 (Physician, Specialty, Details): Dr. Sen, resident hospitalist, agrees to admit patient Diagnosis Differential diagnosis abdominal pain: abdominal pain, diverticulitis, gastroenteritis, pancreatitis and other (Bacterial peritonitis) Most likely diagnosis given after review of the tests above:: Subacute bacterial peritonitis Admission Indicated Admission indicated?: indicated Explain why admission is indicated or not indicated:: Patient requires admission for IV antibiotics and possible paracentesis. Admission Request Was there a request for admission?: Yes Admission Attestation Admission request attestation: Discussed case with Dr. Sen from Hospitalist service regarding admission. Discussed patients ED course, exam findings, labs, and radiology results. The Hospitalist agrees to accept the patient for admission. Disposition Plan Disposition Plan: Admit (To resident hospitalist service.) Discharge Plan Plan Patient Disposition: Admit Acute Care w/in Hospital Discharge Disposition comment: Stable Prescriptions/Referrals Prescriptions/Med Rec: No Action folic acid 1 mg tablet 1 mg PO QDAY Qty: 90 0RF fluticasone propion-salmeterol [Advair Diskus] 100-50 mcg/dose blister with device 1 inh inhalation BID Qty: 60 2RF albuterol sulfate 90 mcg/actuation HFA aerosol inhaler 2 inh inhalation Q6H PRN (Reason: shortness of breath or wheezing) Qty: 8.5 3RF levothyroxine 125 mcg tablet 125 mcg PO QDAY Qty: 60 0RF furosemide [Lasix] 20 mg tablet 20 mg PO QAM Qty: 30 0RF spironolactone [Aldactone] 50 mg tablet 50 mg PO QDAY Qty: 30 0RF Referrals: [facility] [employer],Korina Alvarez NP [Primary Care Provider] - In 1 week Problem List Clinical Impression: Acute bacterial peritonitis Patient/Caregiver Discharge Instructions Print Language: Guyanese Stand Alone Forms: Kya Award Info., Patient Portal Info Letter PA/SMOKEHOUSE WORKER Supervising Physician PA/SMOKEHOUSE WORKER Supervising Physician: Dr Galindo
[2025-04-17 23:42] LABS: Lactate (Lactic Acid) 1.5 mMol/L (0.4-2.0)
[2025-04-18] VITALS (9 sets, daily range): BP systolic 97–117; BP diastolic 58–77; PULSE 70–85; RESP 17–18; TEMP 36.1–36.9; O2SAT 93–97; BMI 34.3
[2025-04-18 00:15] LABS: C-Reactive Protein 5.3 mg/dL (0.0-0.9); Procalcitonin 0.43 ng/ml (0.0-0.49)
[2025-04-18 00:24] LABS: INR 1.3 (0.9-1.3); Partial Thromboplastin Time 30.2 Seconds (22.0-36.0); Prothrombin Time 13.5 Seconds (9.0-12.2)
[2025-04-18 01:44] LABS: COVID-19 Antigen (In-House) Negative (Negative)
[2025-04-18 02:12] LABS: HCG Qualitative,Urine Negative
--- NOTE | 2025-04-18 03:30 | PC.NURSE ---
Retail Area Manager assumes care of patient, pt is A/O x 3 with c/o generalized body pain, but mostly in abd region. Pt is noted to have generalized edema +2/+3 to abd and bilateral extremities, pt also report weight gain of more than 10 lbs in the past week.
[2025-04-18] MEDS: POTASSIUM CHLORIDE 10% 20 MEQ/15 ML UDC 40 MEQ PO (03:54)
[2025-04-18] MEDS: MORPHINE SULF INJ 10 MG/ML VIAL 4 MG IVP (03:54)
[2025-04-18] MEDS: ONDANSETRON INJ 2 MG/ML INJ 2 ML 4 MG IVP (03:55)
[2025-04-18] MEDS: cefTRIAXone 2 GM in SODIUM CHLORIDE 0.9% (Popper) 50 ML IV (03:56)
--- NOTE | 2025-04-18 04:01 | ESHP_ITS ---
Documentation for date of: 04/18/25 HPI History of Present Illness Chief complaint: Abdominal Pain History of present illness: Ms. Casanova is a 44-year-old female with past medical history of recently diagnosed liver cirrhosis 3 weeks prior, alcohol use disorder, hypothyroidism, undiagnosed mass in her neck, bronchial asthma, gastric bypass who presented to [facility] [place] with chief complaint of abdominal pain secondary to abdominal distention. Patient states that 3 weeks ago she was diagnosed with liver cirrhosis in the setting of alcohol liver disease along with fatty liver after her daughter had noticed that she appeared more yellow than normal. Patient states that 3 weeks ago she was drinking about 3-4 bottles of wine a week and immediately discontinued alcohol use after being told about her liver cirrhosis. Patient states that her primary care physician has referred her to [facility] hepatology and she is scheduled to meet up with them in May to establish care. Patient also has a mass on the neck for which she followed up with ENT and they will be referring her to hematology for further workup. She states that she has chronic leukocytosis for which she has been referred to hematology for. She was prescribed Lasix and spironolactone by the emergency department at [facility] and has been taking that since. She has not had paracenteses in the past but was explained that this may be a side effect of the liver cirrhosis. She denies any chest pain, shortness of breath, headache, fever, nausea, vomiting, dizziness, palpitations or generalized weakness. She does describe decreased appetite and increased thirst. PMH: Liver cirrhosis, alcohol use disorder, hypothyroidism, depression, bronchial asthma, gastric bypass, undiagnosed mass in her neck left side Past surgical history: Anton-en-Y gastric bypass, cholecystectomy Social history: Patient currently is not working, able to perform ADLs at baseline but recently has had decreased function due to the abdominal distention. Discontinued alcohol use 3 weeks prior. Denies any recreational drug use or tobacco use Family history: Strong family history for cancer including a neck cancer in her father who at the age of 28. Family history of cervical cancer in grandma. And multiple other cancers in her family. Allergies: NSAIDs stated as allergy but only due to Anton-en-Y gastric bypass. Recommend to discontinue Tylenol use in the setting of liver cirrhosis ED vitals: BP 112/75, pulse 106, RR 20, temp afebrile, O2 sat 97 on room air ED labs: WBC 25.1, hemoglobin 11.4, MCV 112, absolute neutrophil count 18.5 thousand, sodium 134, potassium 3.3, osmolality 266, T. bili 5.6, AST 153, ALT 31, alk phos 191, C-reactive protein 5.3, albumin 2.9. U/A: Dark yellow, 1+ bilirubin, 6 WBC. PT 13.5 INR 1.3 ED imaging reveals mild ascites and chest x-ray reveals a right base pneumonia ED management: 40 mEq of potassium, 4 mg IV push x 1, Zofran 4 mg IV push x 1, Rocephin 2 g IV x 1 Patient is being admitted for observation on [facility] for therapeutic/diagnostic paracentesis with significant abdominal distention Review of Systems Review of Systems Systems Reviewed: All systems reviewed, normal except as documented Exam Vital Signs Temp Pulse Resp BP Pulse Ox O2 Del Method 98.4 F 106 H 20 112/75 97 Room Air 04/17/25 14:04/17/25 14:05 04/17/25 14:05 04/17/25 14:05 04/17/25 14:05 04/17/25 14:05 Narrative Exam GENERAL: Alert and oriented x 3. Mild distress. Well-nourished. Depressed mood EYES: EOMI. Anicteric. HEENT: Moist mucous membranes. No scleral icterus. Massive mass on the left side of her neck LUNGS: Clear to auscultation bilaterally. No accessory muscle use. CARDIOVASCULAR: Regular rate and rhythm. No murmur. No JVD. ABDOMEN: Very distended and uncomfortable abdomen. EXTREMITIES: All 4 extremeties intact. Mild bilateral lower extremity edema 1+ SKIN: No rashes or lesions. Warm. NEUROLOGIC: No focal neurological deficits. CN II-XII grossly intact, but not individually tested. PSYCHIATRIC: Cooperative. Appropriate mood and affect. Results: Labs 04/17/25 14:20 04/17/25 14:20 Labs: Short CBC 04/17/25 Range/Units 14:20 WBC 25.1 H (3.6-11.0) Thou/mm3 Hgb 11.4 L (12.0-16.0) g/dL Hct 32.9 L (36.0-46.0) % Plt Count 409 D (140-440) Thou/mm3 BMP 04/17/25 14:20 Sodium 134 L Potassium 3.3 L Chloride 98 Carbon Dioxide 26.0 BUN 8 L Creatinine 0.7 Glucose 92 Calcium 9.0 Liver Function 04/17/25 Range/Units 14:20 Total Bilirubin 5.6 H (0.3-1.2) mg/dL AST 153 H (0-34) U/L ALT 31 (10-49) U/L Alkaline Phosphatase 191 H (46-116) U/L Albumin 2.9 L (3.5-5.0) gm/dL Urine 04/17/25 Range/Units 15:05 Urine Color Drk-Yellow A (Lt Yel-Yel) Urine Clarity Hazy (Clear/Hazy) Urine pH 6.0 (5.0-7.0) Ur Specific [place] 1.021 (1.001-1.035) Urine Protein Trace (Neg - Trace) Urine Glucose (UA) Negative (Negative) Quality Measures Quality Measures none Medications Home Medications and Allergies Allergies Allergy/AdvReac Type Severity Reaction Status Date / Time NSAIDS (Non-Steroidal Allergy Severe BLOOD NOSE Verified 04/17/25 13:59 Anti-Inflamma Visit Medications Ibuprofen (Ibuprofen Tab 400 Mg Tablet) 400 mg PO Q6HR PRN PRN Reason: Fever > 101 Stop: 05/18/25 03:53 Lactulose (Lactulose Syrup 20 Gm/30 Ml Udc) 20 gm PO QDAY [facility]; Protocol Stop: 05/18/25 08:59 Pantoprazole Sodium (Pantoprazole Inj 40 Mg Vial) 40 mg IVP QDAY EDWINA Stop: 05/18/25 08:59 Sennosides (Senna Tablet) 1 tab PO QDAY [facility]; Protocol Stop: 05/18/25 08:59 Discontinued Medications Ceftriaxone Sodium 2 gm/ (Sodium Chloride) 50 mls @ 100 mls/hr IV QDAY EDWINA Stop: 04/24/25 22:51 Ceftriaxone Sodium 2 gm/ (Sodium Chloride) 50 mls @ 100 mls/hr IV X1 ONE Stop: 04/17/25 23:44 Last Admin: 04/18/25 03:56 Dose: 100 mls/hr Morphine Sulfate (Morphine Sulf Inj 10 Mg/Ml Vial) 4 mg IVP X1 ONE Stop: 04/18/25 03:19 Last Admin: 05/29/25 03:54 Dose: 4 mg Ondansetron HCl (Ondansetron Inj 2 Mg/Ml Inj 2 Ml) 4 mg IVP X1 ONE; Protocol Stop: 04/18/25 03:19 Last Admin: 04/18/25 03:55 Dose: 4 mg Potassium Chloride (Potassium Chloride 10% 20 Meq/15 Ml Udc) 40 meq PO X1 ONE Stop: 04/18/25 03:19 Last Admin: 04/18/25 03:54 Dose: 40 meq Assessment & Plan Plan #Decompensated liver cirrhosis #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 Mild abdominal tenderness with low suspicion for spontaneous bacterial peritonitis Elevated leukocytosis may be in the setting of undiagnosed malignancy that is still being worked up and patient has referral for hematology Will order ultrasound-guided paracentesis for both therapeutic and diagnostic evaluation Consider Rocephin if ANC greater than 250 Consider albumin replacement if greater than 5 L removed via paracentesis GI consulted, appreciate recommendations MELD sodium 19, 6% mortality in the next 90 days Patient is being referred to [facility] hepatology for liver transplant. Explained to the patient the prognostic state of her liver disease. Patient was unaware of the severity of her disease Lasix 40 IV daily and spironolactone 50 mg p.o. daily #Hypothyroidism Resume patient's levothyroxine 125 mcg p.o. daily #Electrolyte abnormalities Continue to monitor and replete #Anton-en-Y gastric bypass Patient was recommended to stay off NSAIDs due to the history of Anton-en-Y gastric bypass Told the patient to switch over to NSAIDs due to liver cirrhosis and hepatotoxicity of acetaminophen which has been her primary analgesic #Bronchial asthma Patient has a longstanding history of bronchial asthma Currently no wheezing auscultated upon examination Consider DuoNebs if patient develops dyspnea #Neck mass Patient has been followed by ENT in regards to the neck mass Patient is being referred to hematology in regards to her leukocytosis #Depression #Generalized anxiety disorder Resume the patient's Prozac 10 mg p.o. daily Health Maintenance: DVT prophylaxis: SCDs due to ultrasound-guided paracentesis tomorrow GI prophylaxis: Protonix 40 IV daily Diet: Low-sodium [place]: Not indicated Lines: Peripheral IVs Supplemental O2: None CODE STATUS: Full code Disposition: Admitted for observation to [facility] for diagnostic/therapeutic paracentesis Plan of care discussed with supervising attending Dr. María Whipple M.D. PGY-3 Attending Provider Attestation/Addendum I have examined the patient, reviewed labs and imaging findings, discussed the case with the resident(s), and reviewed entered orders. I agree with the plan of care as outlined in this note, with these additional summaries/recommendations: After examination of the patient and review of the clinical data, I feel that this patient needs admission to the hospital for further treatment and evaluation. Patient is a 44-year-old female with a medical history of liver cirrhosis, anxiety, hyperlipidemia, hypothyroidism, gastric bypass, and head and neck mass being followed by oncology presents to [facility] emergency department on 04/18/2025 with generalized swelling, abdominal distention and pain, and bloating. Patient and daughter seen at bedside. She reports despite taking oral Lasix and spironolactone she has had increasing swelling in her legs and abdomen. She reports she thinks she has gained approximately 19 pounds in the last week. She denies having paracentesis in the past. Patient diagnosed with fluid overload, ascites, and decompensated cirrhosis. Patient has evidence of synthetic liver dysfunction. We will order paracentesis and send fluid for analysis. I have a very low suspicion for spontaneous bacterial peritonitis at this time. Patient does have abdominal pain and tenderness but does not have fever or altered mental status or hypotension or hypothermia that is commonly seen with SBP. Significant leukocytosis is present which may be related to patient's head and neck mass. Blood cultures were ordered in the ED although we will defer additional antibiotics for now until paracentesis complete. Start IV diuresis and resume home spironolactone. Fluid restriction and low-salt diet. Macrocytic anemia present although no evidence of acute bleeding at this time. Continue home inhalers. Mild hypokalemia on chemistry panel and repeat level in AM. Avoid hepatotoxic agents and hepatically dose medications. I counseled patient at bedside on the importance of following up with PCP for referral to journeyman carpenter/transplant center. Patient and daughter updated at on the plan at bedside. All questions answered to satisfaction. Please see residents note for additional details and management. Dr. María MD
[2025-04-18 05:01] LABS: Basophils # (Auto) 0.1 Thou/mm3 (0.0-0.2); Basophils % (Auto) 1 % (0-2.5); Eosinophils # (Auto) 0.1 Thou/mm3 (0.0-0.5); Eosinophils % (Auto) 1 % (0-10); Hematocrit 29.9 % (36.0-46.0); Hemoglobin 10.3 g/dL (12.0-16.0); Immature Granulocytes % (Auto) 1 % (0-0); Immature Granulocytes Auto 0.08 Thou/mm3 (0.00-0.00); Lymphocytes # (Auto) 2.4 Thou/mm3 (1.0-4.8); Lymphocytes % (Auto) 14 % (10-50); Mean Corpuscular HGB Conc 34.4 g/dl (31.0-37.0); Mean Corpuscular Hemoglobin 38.3 pg (25.0-35.0); Mean Corpuscular Volume 111 fL (80-100); Monocytes # (Auto) 1.5 Thou/mm3 (0.0-0.8); Monocytes % (Auto) 9 % (0-12); Neutrophils # (Auto) 13.3 Thou/mm3 (1.8-7.7); Neutrophils % (Auto) 76 % (37-80); Nucleated Red Blood Cell % 0 /100 WBC (0); Platelet Count 303 Thou/mm3 (140-440); RDW Standard Deviation 49.6 fL (36.4-46.3); Red Blood Count 2.69 Miln/mm3 (4.00-5.20); White Blood Count 17.5 Thou/mm3 (3.6-11.0)
[2025-04-18 05:44] LABS: Alanine Aminotransferase 28 U/L (10-49); Albumin, Serum 2.6 gm/dL (3.5-5.0); Albumin/Globulin Ratio 0.8 (1.2-2.2); Alkaline Phosphatase 163 U/L (46-116); Amylase 36 U/L (30-118); Anion Gap 7 (7-16); Aspartate Amino Transferase 149 U/L (0-34); BUN/Creatinine Ratio 14 Ratio (12-20); Bilirubin,Total 5.7 mg/dL (0.3-1.2); Blood Urea Nitrogen 7 mg/dL (9-23); Calcium 7.8 mg/dL (8.3-10.6); Calcium (Corrected) 8.9 mg/dL (8.5-10.1); Carbon Dioxide 26.2 mMol/L (20.0-31.0); Chloride 104 mMol/L (98-107); Creatinine (Component) 0.5 mg/dL (0.6-1.3); Globulin 3.3 gm/dL (2.3-3.5); Glucose 97 mg/dL (74-106); LDH (Lactate Dehydrogenase) 160 U/L (120-246); Magnesium 1.9 mg/dL (1.6-2.6); Osmolality,Calculated 271 (275-295); Potassium 3.9 mMol/L (3.4-5.1); Sodium 137 mMol/L (136-145); Total Protein 5.9 gm/dL (5.7-8.2); eGFR > 60 See Note
--- NOTE | 2025-04-18 07:25 | PC.NURSE ---
Addendum entered by Kathleen Mckee RN 04/18/25 07:56: 0600 MED NOT AVAILABLE IN [facility], NOT DELIVERED BY PHARMACY PRIOR TO TRANSFER OF CARE Original Note: ATTEMPTED TO CALL ADMITTING PROVIDER AT THIS TIME TO INFORM HIM THAT US CALLED AND STATED PER THEIR US RESULTS YESTERDAY, PT DOES NOT HAVE ENOUGH FLUIDS TO BE TAPPED. NO ANSWER AT THIS TIME, WILL CALL TO GIVE REPORT TO MS NURSE AND INFORM THEM OF THIS UPDATE. PT IS ALERT, GCS 15 ON STRETCHER, VSS, DAUGHTER AT BEDSIDE ATTENTIVE TO PT, CALL SILVA REMAINS IN REACH.
[2025-04-18] MEDS: LEVOTHYROXINE SODIUM 125 MCG TABLET PO (08:14)
[2025-04-18] MEDS: FOLIC ACID 1 MG TABLET PO (08:15)
[2025-04-18] MEDS: FUROSEMIDE INJ 10 MG/ML 4ML VIAL 40 MG IVP ×2 (08:15→11:30)
[2025-04-18] MEDS: SPIRONOLACTONE 25 MG TABLET 50 MG PO (08:16)
[2025-04-18] MEDS: LACTULOSE SYRUP 20 GM/30 ML UDC PO (08:16)
[2025-04-18] MEDS: PANTOPRAZOLE INJ 40 MG VIAL IVP (08:16)
[2025-04-18] MEDS: IBUPROFEN TAB 400 MG TABLET PO (08:17)
--- NOTE | 2025-04-18 09:16 | ESCONSULT_ITS ---
HPI Data of Consult Requesting Physician: Isai Daniel MD Primary Care Provider: Korina Jay NP Consult Narrative Reason for consult: Pain abdomen swelling of the lower extremities History of present illness: 44 years old female came into the emergency room because of severe abdominal pain as well as swelling of the lower extremities She has alcohol induced chronic liver disease has been followed by her primary care physician and has been referred to [facility] and she has not seen anybody in hepatology so far Abdominal ultrasound showed minimal ascites He does have a history of undiagnosed mass in the neck Anton-en-Y gastrojejunostomy cholecystectomy CT scan of the chest abdomen pelvis showedOn 03/27/2025 chronic hepatocellular disease versus cirrhosis absent gallbladder MRCP 03/27/2025 showed absent gallbladder CBD 8 mm no stones cc:: cc: Isai Daniel MD Review of Systems Review of Systems Systems Reviewed: All systems reviewed, normal except as documented Past Medical History Surgical History OTHER SURGICAL HX: As in history of present illness Meds Home Medications and Allergies Allergies Allergy/AdvReac Type Severity Reaction Status Date / Time NSAIDS (Non-Steroidal Allergy Severe BLOOD NOSE Verified 04/17/25 13:59 Anti-Inflamma Exam Vital Signs Temp Pulse Resp BP Pulse Ox O2 Del Method 98.5 F 78 17 105/68 96 Room Air 04/18/25 08:07 04/18/25 08:16 04/18/25 08:07 04/18/25 08:16 04/18/25 08:07 04/18/25 08:07 Constitutional Comments: Chronically ill-appearing Routine Respiratory Exam Comments: Normal to auscultation Routine Abdominal Exam Comments: Tender positive bowel sounds Results Labs 04/18/25 04:50 04/18/25 04:50 Labs: Short CBC 04/17/25 04/18/25 Range/Units 14:20 04:50 WBC 25.1 H 17.5 H D (3.6-11.0) Thou/mm3 Hgb 11.4 L 10.3 L (12.0-16.0) g/dL Hct 32.9 L 29.9 L (36.0-46.0) % Plt Count 409 D 303 D (140-440) Thou/mm3 BMP 04/17/25 04/18/25 14:20 04:50 Sodium 134 L 137 Potassium 3.3 L 3.9 D Chloride 98 104 Carbon Dioxide 26.0 26.2 BUN 8 L 7 L Creatinine 0.7 0.5 L Glucose 92 97 Calcium 9.0 7.8 L Liver Function 04/17/25 04/18/25 Range/Units 14:20 04:50 Total Bilirubin 5.6 H 5.7 H (0.3-1.2) mg/dL AST 153 H 149 H (0-34) U/L ALT 31 28 (10-49) U/L Alkaline Phosphatase 191 H 163 H D (46-116) U/L Albumin 2.9 L 2.6 L (3.5-5.0) gm/dL Urine 04/17/25 Range/Units 15:05 Urine Color Drk-Yellow A (Lt Yel-Yel) Urine Clarity Hazy (Clear/Hazy) Urine pH 6.0 (5.0-7.0) Ur Specific [place] 1.021 (1.001-1.035) Urine Protein Trace (Neg - Trace) Urine Glucose (UA) Negative (Negative) Assessment and Plan Additional Assessment & Plan Additional Plan: # clinical picture most likely consistent with subacute bacterial peritonitis Lack of fluid obscure the diagnosis as diagnostic paracentesis cannot be done Plan Case discussed with the ER team Panculture Start the patient on third-generation cephalosporin which is IV ceftriaxone # Decompensated liver disease secondary to alcohol Recommend IV Lasix and p.o. spironolactone 2 g sodium diet Will follow the patient
[2025-04-18] MEDS: THIAMINE INJ 100 MG/ML VIAL 2 ML IVP (09:41)
[2025-04-18] MEDS: cefTRIAXone/D5w 1gm IV premix 1 GM/50 ML BAG IV (11:28)
--- NOTE | 2025-04-18 12:58 | PC.SS ---
SS met with patient regarding her d/c plan. Pt is alert/oriented. Pt was admitted for Abdominal Pain. Pt confirmed demographic and contact information is correct on facesheet. Pt resides with daughter. Pt ambulates independently without assistance or DME. Pt is ok with all ADLs. Patient?s pharmacy of choice is [facility] [address]. Pt named her dtr, Yesenia Pringle medical decision maker if she is unable. Patient?s choice is to return home upon d/c. Pt states she is not diabetic and is not on dialysis. Pt states she does not have an advance directive, SS offered, and pt declined. Pt states she followed up with PCP 2 weeks ago. Pt states she has her own vehicle for transportation. D/C plan: Return home Next of Kin: Tim Pringle, daughter, phone# [phone] PCP: Korina Jay from [facility] Address: Correct on facesheet
--- NOTE | 2025-04-18 13:54 | PD.RESPRO ---
Documentation for date of: 04/18/25 Subjective Subjective Interval history: Patient examined at bedside today. No acute overnight events. Patient reports that she stopped drinking 3 weeks ago. She says her abdominal pain is mild at this point. She is wondering when she needs a paracentesis. She has some nausea. No other complaints this time. Exam Vital Signs Temp Pulse Resp BP Pulse Ox O2 Del Method 97.5 F 75 17 97/59 L 96 Room Air 04/18/25 11:36 04/18/25 11:36 04/18/25 11:36 04/18/25 11:36 04/18/25 11:36 04/18/25 11:36 Narrative Exam GENERAL: Alert and oriented x 3. Mild distress. Well-nourished. Depressed mood EYES: EOMI. Anicteric. HEENT: Moist mucous membranes. No scleral icterus. Massive mass on the left side of her neck LUNGS: Clear to auscultation bilaterally. No accessory muscle use. CARDIOVASCULAR: Regular rate and rhythm. No murmur. No JVD. ABDOMEN: Very distended and uncomfortable abdomen. EXTREMITIES: All 4 extremeties intact. Mild bilateral lower extremity edema 1+ SKIN: No rashes or lesions. Warm. NEUROLOGIC: No focal neurological deficits. CN II-XII grossly intact, but not individually tested. PSYCHIATRIC: Cooperative. Appropriate mood and affect. Objective Labs 04/19/25 04:40 04/19/25 04:40 Labs: Laboratory Results - last 24 hr 04/17/25 04/17/25 04/17/25 00:00 14:20 15:05 WBC 25.1 H RBC 2.94 L Hgb 11.4 L Hct 32.9 L MCV 112 H MCH 38.8 H MCHC 34.7 RDW Std Deviation 50.4 H Plt Count 409 D Neut % (Auto) 74 Lymph % (Auto) 16 [place] % (Auto) 8 Eos % (Auto) 1 Baso % (Auto) 1 Neut # (Auto) 18.5 H Lymph # (Auto) 4.1 [place] # (Auto) 1.9 H Eos # (Auto) 0.2 Baso # (Auto) 0.2 Immature Gran # (Auto) 0.18 H Absolute Nucleated RBC 0.00 Immature Gran % 1 H Nucleated RBC % 0 PT INR APTT Sodium 134 L Potassium 3.3 L Chloride 98 Carbon Dioxide 26.0 Anion Gap 10 BUN 8 L Creatinine 0.7 Estim Creat Clear Calc Not Performed. eGFR > 60 BUN/Creatinine Ratio 11 L Glucose 92 Calculated Osmolality 266 L Lactic Acid Calcium 9.0 Corrected Calcium 9.9 Magnesium Total Bilirubin 5.6 H AST 153 H ALT 31 Alkaline Phosphatase 191 H Lactate Dehydrogenase C-Reactive Prot, Quant Total Protein 6.9 Albumin 2.9 L Globulin 4.0 H Albumin/Globulin Ratio 0.7 L Amylase Lipase 38 Procalcitonin Ur Collection Type Clean Catch Urine Color Drk-Yellow A Urine Clarity Hazy Urine pH 6.0 Ur Specific [place] 1.021 Urine Protein Trace Urine Glucose (UA) Negative Urine Ketones Negative Urine Blood Negative Urine Nitrite Negative Urine Bilirubin 1+ A Urine Urobilinogen (Auto) 4.0 Ur Leukocyte Esterase Positive Urine RBC 2 Urine WBC 6 H Ur Squamous Epith Cells 7 H Urine Bacteria Rare Urine HCG, Qual Negative SARS-CoV-2 Ag (Rapid) 04/17/25 04/18/25 04/18/25 23:15 01:19 04:50 WBC 17.5 H D RBC 2.69 L Hgb 10.3 L Hct 29.9 L MCV 111 H MCH 38.3 H MCHC 34.4 RDW Std Deviation 49.6 H Plt Count 303 D Neut % (Auto) 76 Lymph % (Auto) 14 [place] % (Auto) 9 Eos % (Auto) 1 Baso % (Auto) 1 Neut # (Auto) 13.3 H Lymph # (Auto) 2.4 [place] # (Auto) 1.5 H Eos # (Auto) 0.1 Baso # (Auto) 0.1 Immature Gran # (Auto) 0.08 H Absolute Nucleated RBC 0.00 Immature Gran % 1 H Nucleated RBC % 0 PT 13.5 H INR 1.3 APTT 30.2 Sodium 137 Potassium 3.9 D Chloride 104 Carbon Dioxide 26.2 Anion Gap 7 BUN 7 L Creatinine 0.5 L Estim Creat Clear Calc Not Performed. eGFR > 60 BUN/Creatinine Ratio 14 Glucose 97 Calculated Osmolality 271 L Lactic Acid 1.5 Calcium 7.8 L Corrected Calcium 8.9 Magnesium 1.9 Total Bilirubin 5.7 H AST 149 H ALT 28 Alkaline Phosphatase 163 H D Lactate Dehydrogenase 160 C-Reactive Prot, Quant 5.3 H Total Protein 5.9 Albumin 2.6 L Globulin 3.3 Albumin/Globulin Ratio 0.8 L Amylase 36 Lipase Procalcitonin 0.43 Ur Collection Type Urine Color Urine Clarity Urine pH Ur Specific [place] Urine Protein Urine Glucose (UA) Urine Ketones Urine Blood Urine Nitrite Urine Bilirubin Urine Urobilinogen (Auto) Ur Leukocyte Esterase Urine RBC Urine WBC Ur Squamous Epith Cells Urine Bacteria Urine HCG, Qual SARS-CoV-2 Ag (Rapid) Negative Quality Measures Quality Measures none Assessment & Plan Assessment Current Active Medications: Generic Name Dose Route Start Last Admin Trade Name Freq PRN Reason Stop Dose Admin Fluoxetine HCl 10 mg 04/18/25 09:00 04/18/25 08:15 Fluoxetine Hcl 10 Mg Capsule PO 05/18/25 08:59 Not Given QDAY EDWINA Folic Acid 1 mg 04/18/25 09:00 04/18/25 08:15 Folic Acid 1 Mg Tablet PO 05/18/25 08:59 1 mg QDAY EDWINA Administration Furosemide 40 mg 04/18/25 09:00 04/18/25 08:15 Furosemide Inj 10 Mg/Ml 4ml Vial IVP 05/18/25 08:59 40 mg QDAY EDWINA Administration Ceftriaxone Sodium/Dextrose 1 gm in 50 mls @ 100 mls/hr 04/18/25 11:02 04/18/25 11:28 Rocephin/D5w 1gm Iv Premix IV 04/25/25 11:01 100 mls/hr QDAY EDWINA Administration Ibuprofen 400 mg 04/18/25 03:54 04/18/25 08:17 Ibuprofen Tab 400 Mg Tablet PO 05/18/25 03:53 400 mg Q6HR PRN Administration Fever > 101 Lactulose 20 gm 04/18/25 09:00 04/18/25 08:16 Lactulose Syrup 20 Gm/30 Ml Udc PO 05/18/25 08:59 20 gm QDAY EDWINA Administration Protocol Levothyroxine Sodium 125 mcg 04/18/25 06:00 04/18/25 08:14 Levothyroxine Sodium 125 Mcg Tablet PO 05/18/25 05:59 125 mcg ACBR EDWINA Administration Pantoprazole Sodium 40 mg 04/18/25 09:00 04/18/25 08:16 Pantoprazole Inj 40 Mg Vial IVP 05/18/25 08:59 40 mg QDAY EDWINA Administration Sennosides 1 tab 04/18/25 09:00 04/18/25 08:16 Senna Tablet PO 05/18/25 08:59 Not Given QDAY [facility] Protocol Spironolactone 50 mg 04/18/25 09:00 04/18/25 08:16 Spironolactone 25 Mg Tablet PO 05/18/25 08:59 50 mg QDAY EDWINA Administration Thiamine HCl 100 mg 04/18/25 09:30 04/18/25 09:41 Thiamine Inj 100 Mg/Ml Vial 2 Ml IVP 05/18/25 09:29 100 mg QDAY EDWINA Administration Plan Assessment 44-year-old female with past medical history of recently diagnosed liver cirrhosis 3 weeks prior, alcohol use disorder, hypothyroidism, undiagnosed mass in her neck, bronchial asthma, gastric bypass who is admitted for decompensated liver .cirrhosis #Decompensated liver cirrhosis #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 GI consulted, appreciate recs ? Continue Lasix 40 IV daily ? Spironolactone 50 mg p.o. daily ? Additional 40 IV Lasix x 1 ? Trend CMP and coag markers ? Patient will be on Rocephin due to community acquired pneumonia ? Strict LUPE's ? Fluid restriction #Community acquired pneumonia Chest x-ray shows right base pneumonia Plan: ? Rocephin 1 g IV #Hypothyroidism Plan: ? Continue home levothyroxine 125 mcg p.o. daily ? TSH a.m. #Electrolyte abnormalities Plan: ? Continue to monitor and replete #Bronchial asthma Chronic Plan: ? DuoNebs as needed #Neck mass Patient has been followed by ENT in regards to the neck mass Patient is being referred to hematology in regards to her leukocytosis Plan: ? Outpatient follow-up #Depression #Generalized anxiety disorder Plan: ? Resume the patient's Prozac 10 mg p.o. daily #Health Maintenance Disposition: MedSurg DVT prophylaxis: Lovenox GI prophylaxis: Protonix Diet: Low-sodium CODE STATUS: Full Patient seen and care discussed with my senior resident, Dr. Del Rosario , and my attending physician, Dr. Guy Kulkarni, PGY-1 Attending Provider Attestation/Addendum I reviewed labs, imaging, EKG, home medications and prior available records. Face to face evaluation was performed by me. I have personally examined the patient and discussed assessment and plan with the IM team. I reviewed the resident note and agree with the plan with exceptions as below. Abdominal pain Liver cirrhosis, alcoholic Ascites Possible SBP Leukocytosis, downtrending Consulted IR: Could not safely drain the ascites Continue IV Lasix and spironolactone Fluid restriction Avoid alcohol use Consulted GI
[2025-04-18] MEDS: PREGABALIN 25 MG CAPSULE PO (16:31)
[2025-04-18] MEDS: HYDROmorphone INJ 2 MG/ML VIAL 0.25 MG IVP (18:51)
[2025-04-19] VITALS (7 sets, daily range): BP systolic 97–108; BP diastolic 56–73; PULSE 74–78; RESP 17–18; TEMP 36.1–36.6; O2SAT 95–97
--- NOTE | 2025-04-19 00:11 | PC.NURSE ---
Pt refusing bed alarm, educated on the risk of falling, pt understand the risk and benefits of having the bed alarm but still refusing it.
[2025-04-19 05:11] LABS: Basophils # (Auto) 0.1 Thou/mm3 (0.0-0.2); Basophils % (Auto) 1 % (0-2.5); Eosinophils # (Auto) 0.1 Thou/mm3 (0.0-0.5); Eosinophils % (Auto) 1 % (0-10); Hematocrit 28.6 % (36.0-46.0); Hemoglobin 9.6 g/dL (12.0-16.0); Immature Granulocytes % (Auto) 1 % (0-0); Immature Granulocytes Auto 0.07 Thou/mm3 (0.00-0.00); Lymphocytes # (Auto) 2.2 Thou/mm3 (1.0-4.8); Lymphocytes % (Auto) 15 % (10-50); Mean Corpuscular HGB Conc 33.6 g/dl (31.0-37.0); Mean Corpuscular Hemoglobin 38.6 pg (25.0-35.0); Mean Corpuscular Volume 115 fL (80-100); Monocytes # (Auto) 1.4 Thou/mm3 (0.0-0.8); Monocytes % (Auto) 10 % (0-12); Neutrophils # (Auto) 10.4 Thou/mm3 (1.8-7.7); Neutrophils % (Auto) 73 % (37-80); Nucleated Red Blood Cell % 0 /100 WBC (0); Platelet Count 375 Thou/mm3 (140-440); RDW Standard Deviation 50.2 fL (36.4-46.3); Red Blood Count 2.49 Miln/mm3 (4.00-5.20); White Blood Count 14.2 Thou/mm3 (3.6-11.0)
[2025-04-19] MEDS: LEVOTHYROXINE SODIUM 125 MCG TABLET PO (05:28)
[2025-04-19 06:16] LABS: Alanine Aminotransferase 23 U/L (10-49); Albumin, Serum 2.2 gm/dL (3.5-5.0); Albumin/Globulin Ratio 0.7 (1.2-2.2); Alkaline Phosphatase 147 U/L (46-116); Anion Gap 8 (7-16); Aspartate Amino Transferase 135 U/L (0-34); BUN/Creatinine Ratio 10 Ratio (12-20); Bilirubin,Total 4.3 mg/dL (0.3-1.2); Blood Urea Nitrogen 6 mg/dL (9-23); Calcium 7.6 mg/dL (8.3-10.6); Carbon Dioxide 27.3 mMol/L (20.0-31.0); Chloride 104 mMol/L (98-107); Creatinine (Component) 0.6 mg/dL (0.6-1.3); Estimated Creatinine Clearance 128.5 mL/min (>60); Globulin 3.2 gm/dL (2.3-3.5); Glucose 92 mg/dL (74-106); Magnesium 1.8 mg/dL (1.6-2.6); Osmolality,Calculated 275 (275-295); Phosphorous 3.2 mg/dL (2.4-5.1); Potassium 3.8 mMol/L (3.4-5.1); Sodium 139 mMol/L (136-145); Thyroid Stimulating Hormone 10.37 uIU/mL (0.55-4.78); Total Protein 5.4 gm/dL (5.7-8.2); eGFR > 60 See Note
[2025-04-19 06:58] LABS: Path Review Blood Smear Sent to Pathologist
[2025-04-19] MEDS: PREGABALIN 25 MG CAPSULE PO (07:22)
[2025-04-19 08:08] LABS: Free T4 (Free Thyroxine) 1.49 ng/dL (0.89-1.76)
[2025-04-19] MEDS: FOLIC ACID 1 MG TABLET PO (08:24)
[2025-04-19] MEDS: SENNA TABLET 1 TAB PO (08:24)
[2025-04-19] MEDS: PANTOPRAZOLE 40 MG TABLET PO (08:25)
[2025-04-19] MEDS: SPIRONOLACTONE 25 MG TABLET 50 MG PO (08:25)
[2025-04-19] MEDS: LACTULOSE SYRUP 20 GM/30 ML UDC PO (08:25)
[2025-04-19] MEDS: ENOXAPARIN SOD INJ 40 MG/0.4 ML SYRINGE SC (08:27)
[2025-04-19] MEDS: THIAMINE INJ 100 MG/ML VIAL 2 ML IVP (08:28)
[2025-04-19] MEDS: FUROSEMIDE INJ 10 MG/ML 4ML VIAL 40 MG IVP ×2 (08:31→11:36)
[2025-04-19] MEDS: cefTRIAXone/D5w 1gm IV premix 1 GM/50 ML BAG IV (08:32)
--- NOTE | 2025-04-19 09:19 | PC.SS ---
Follow up note: IV diuresis. GI consulting. Pt will d/c home today.
--- NOTE | 2025-04-19 10:47 | ESDS_ITS ---
Planned Discharge Date 04/19/25 DS: Providers Provider Date of admission: 04/18/25 03:54 Primary care physician: Korina Jay NP Admitting Provider: Isai Daniel MD Attending Provider on Admission: Isai Daniel MD Consults: 04/17/25 22:53 Consult to Gastroenterology Stat Comment: Dr. Gipson - subacute bacterial peritonitis Consulting Provider: Yossi Gipson Attending Provider on DC: Rafi Tovar MD Discharging Provider: Rafi Tovar MD DS: Diagnosis Problem List Completed Was Problem List Reviewed/Reconciled?: Yes Hospital Course Hospital Course Hospital course: Ms. Casanova is a 44-year-old female with past medical history of recently diagnosed liver cirrhosis 3 weeks prior, hx of Anton-en-Y, alcohol use disorder, hypothyroidism, undiagnosed mass in her neck, bronchial asthma, and cholecystectomy who was admitted to [facility] on April 18, 2025 for decompensated liver cirrhosis and ascites. Patient had arrived to the ED with a BP 112/75, pulse 106, RR 20, temp afebrile, O2 sat 97 on room air. Patient was worked up was found to have a WBC 25.1, hemoglobin 11.4, MCV 112, absolute neutrophil count 18.5 thousand, sodium 134, potassium 3.3, osmolality 266, T. bili 5.6, AST 153, ALT 31, alk phos 191, C-reactive protein 5.3, albumin 2.9. U/A: Dark yellow, 1+ bilirubin, 6 WBC. PT 13.5 INR 1.3. Abdominal ultrasound showed mild ascites and chest x-ray reveals a right base pneumonia. Patient was given 40 mEq of potassium, 4 mg IV push x 1, Zofran 4 mg IV push x 1, Rocephin 2 g IV x 1. Medicine was consulted and patient was admitted to the floors. While on the floors, ultrasound-guided paracentesis was ordered, and was unable to be performed due to fluid not being localized and rather diffusely spread. GI was consulted, Dr. Gipson, who had recommended IV diuresis with Lasix and spironolactone. Patient continued to get IV diuresis with Lasix 80 mg and continue with spironolactone. Patient continued to improve with diuresis and patient was also getting Rocephin for SBP prophylaxis and pneumonia, however it was low suspicion for SBP as well. Patient also had elevated TSH which seem to be reactive as free thyroxine was unremarkable. Patient was recommended to follow-up with TSH check within 4 to 6 weeks outpatient. MELD-Na and Child-Sidhu score were calculated and were found to be 19 and 10 (class C) respectively. Patient continued to improve symptomatically and in addition to liver markers and was then discharged with the following instructions. 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 Guy Kulkarni, PGY-1 Time Spent with Patient Time attestation: Total time spent providing and/or coordinating discharge services: Time spent: Greater than 30 minutes Exam Vital Signs Temp Pulse Resp BP Pulse Ox O2 Del Method 97.4 F 78 17 102/71 97 Room Air 04/19/25 08:00 04/19/25 08:31 04/19/25 08:00 04/19/25 08:31 04/19/25 08:00 04/19/25 08:00 Narrative Exam GENERAL: Alert and oriented x 3. Mild distress. Well-nourished. Depressed mood EYES: EOMI. Anicteric. HEENT: Moist mucous membranes. No scleral icterus. Massive mass on the left side of her neck LUNGS: Clear to auscultation bilaterally. No accessory muscle use. CARDIOVASCULAR: Regular rate and rhythm. No murmur. No JVD. ABDOMEN: Very distended and uncomfortable abdomen. EXTREMITIES: All 4 extremeties intact. Mild bilateral lower extremity edema 1+ SKIN: No rashes or lesions. Warm. NEUROLOGIC: No focal neurological deficits. CN II-XII grossly intact, but not individually tested. PSYCHIATRIC: Cooperative. Appropriate mood and affect. Discharge Plan Plan Patient Disposition: HOME (Self Care) Patient condition on transfer: Stable Care Plan Goals: Discharge Instructions: Follow up with your primary care provider within one week Follow up with your director of teenage activities and Liver transplant team as soon as able I have prescribed you a new dose of Lasix 40 mg, hold if your blood pressure (top number) is below 100 Take your medicines as prescribed Use [place] 5 as needed every 6 hours for pain Finish your antibiotic course as directed, Ciprofloxacin Recheck your TSH as this was abnormal in the hospital, recheck within 4-6 weeks with your primary care provider Follow up with your primary care provider in regards to your macrocytic anemia Return to ED if your symptoms worsen or return Prescriptions/Referrals Prescriptions/Med Rec: New ciprofloxacin HCl [Cipro] 500 mg tablet 500 mg PO BID 5 Days Qty: 10 0RF Rx Instructions: Take one tablet by mouth twice a day furosemide [Lasix] 40 mg tablet 40 mg PO QDAY 30 Days Qty: 30 0RF Rx Instructions: Take one tablet by mouth every day, hold if SBP below 100 hydrocodone-acetaminophen 5-325 mg tablet 1 tab PO Q6H MDD 4 tablets PRN (Reason: pain) 3 Days Qty: 12 0RF Rx Instructions: Take one tablet every 6 hours by mouth as needed for severe or breakthrough pain Continued folic acid 1 mg tablet 1 mg PO QDAY Qty: 90 0RF albuterol sulfate 90 mcg/actuation HFA aerosol inhaler 2 inh inhalation Q6H PRN (Reason: shortness of breath or wheezing) Qty: 8.5 3RF levothyroxine 125 mcg tablet 125 mcg PO QDAY Qty: 60 0RF spironolactone [Aldactone] 50 mg tablet 50 mg PO QDAY Qty: 30 0RF Discontinued fluticasone propion-salmeterol [Advair Diskus] 100-50 mcg/dose blister with device 1 inh inhalation BID Qty: 60 2RF furosemide [Lasix] 20 mg tablet 20 mg PO QAM Qty: 30 0RF Referrals: Misty C COORDINATE MEASURING EQUIPMENT OPERATOR,Korina Alvarez COORDINATE MEASURING EQUIPMENT OPERATOR [Primary Care Provider] - Patient/Caregiver Discharge Instructions Discharge Activity: activity as tolerated Education Materials: Treating Cirrhosis, Discharge Instructions for ..., ED Ascites Print Language: Romanian Stand Alone Forms: Kya Award Info., Patient Portal Info Letter, Work/Release Restrictions Discharge Order Discharge Orders: Discharge (Routine); Ordered 04/19/25 Ordered By: Yusuf Kulkarni Quality Discharge Quality Measures VTE prophylaxis (Lovenox) Attestestation MD Attestation I reviewed labs, imaging, EKG, home medications and prior available records. Face to face evaluation was performed by me. I have personally examined the patient and discussed assessment and plan with the IM team. I reviewed the resident note and agree with the plan with exceptions as below. Abdominal pain Liver cirrhosis, alcoholic Ascites Possible SBP Leukocytosis, downtrending Transaminitis, downtrending Consulted IR: Could not safely drain the ascites Continue p.o. Lasix and spironolactone P.o. ciprofloxacin for SBP prophylaxis Short-term [place] for pain management Fluid restriction Avoid alcohol use Outpatient follow-up with hepatology Time spent is 40 minutes. More than 50% of the time was spent on patient education and coordination of care.
[2025-04-19] MEDS: HYDROmorphone INJ 2 MG/ML VIAL 0.25 MG IVP (11:44)
--- NOTE | 2025-04-19 15:03 | ESPR_ITS ---
Documentation for date of: 04/19/25 Subjective Subjective Interval history: Clinically improving Okay to discharge patient home to be followed by the PCP Exam Vital Signs Temp Pulse Resp BP Pulse Ox O2 Del Method 97.8 F 76 17 104/73 97 Room Air 04/19/25 12:00 04/19/25 12:00 04/19/25 12:00 04/19/25 12:00 04/19/25 12:00 04/19/25 12:00 Objective Labs 04/19/25 04:40 04/19/25 04:40 Labs: Laboratory Results - last 24 hr 04/19/25 04/19/25 04:40 04:40 WBC 14.2 H RBC 2.49 L Hgb 9.6 L Hct 28.6 L MCV 115 H MCH 38.6 H MCHC 33.6 RDW Std Deviation 50.2 H Plt Count 375 D Neut % (Auto) 73 Lymph % (Auto) 15 [place] % (Auto) 10 Eos % (Auto) 1 Baso % (Auto) 1 Neut # (Auto) 10.4 H Lymph # (Auto) 2.2 [place] # (Auto) 1.4 H Eos # (Auto) 0.1 Baso # (Auto) 0.1 Immature Gran # (Auto) 0.07 H Absolute Nucleated RBC 0.00 Immature Gran % 1 H Nucleated RBC % 0 Smear Path Review Sent to Pathologist Sodium 139 Potassium 3.8 Chloride 104 Carbon Dioxide 27.3 Anion Gap 8 BUN 6 L Creatinine 0.6 Estim Creat Clear Calc 128.5 eGFR > 60 BUN/Creatinine Ratio 10 L Glucose 92 Calculated Osmolality 275 Calcium 7.6 L Corrected Calcium 9.0 Phosphorus 3.2 Magnesium 1.8 Total Bilirubin 4.3 H D AST 135 H ALT 23 Alkaline Phosphatase 147 H Total Protein 5.4 L Albumin 2.2 L Globulin 3.2 Albumin/Globulin Ratio 0.7 L TSH 10.37 H Free T4 1.49 Cancelled Impressions Impression: Most likely subacute bacterial peritonitis Okay to discharge patient home to be followed by PCP Assessment & Plan A&P Narrative # clinical picture most likely consistent with subacute bacterial peritonitis Lack of fluid obscure the diagnosis as diagnostic paracentesis cannot be done Plan Case discussed with the ER team Panculture Start the patient on third-generation cephalosporin which is IV ceftriaxone # Decompensated liver disease secondary to alcohol Recommend IV Lasix and p.o. spironolactone 2 g sodium diet Will follow the patient Time Spent With Patient Time: Total time spent is greater than 50% in coordination of care (as documented) at patient's floor/unit and/or counseling patient:
== END 2025-04-19 15:13 | disposition home or self-care (01) ==
LOC: SERX 23:15 → SERHOLD 04-18 06:39 → S3NX 04-18 07:58
PROVIDERS: Physician Assistant; Student in an Organized Health Care Education/Training Program; Admitting Provider Student in an Organized Health Care Education/Training Program; Emergency Provider Emergency Medicine; PCP Nurse Practitioner Family; Visit Provider Student in an Organized Health Care Education/Training Program
DX: K70.31 Alcoholic cirrhosis of liver with ascites (principal); E03.9 Hypothyroidism, unspecified; E87.8 Other disorders of electrolyte and fluid balance, not elsewhere classified; F32.A Depression, unspecified; F41.1 Generalized anxiety disorder; J18.9 Pneumonia, unspecified organism; J45.909 Unspecified asthma, uncomplicated; K65.9 Peritonitis, unspecified; K76.0 Fatty (change of) liver, not elsewhere classified; Z98.84 Bariatric surgery status; Z90.49 Acquired absence of other specified parts of digestive tract; Z88.6 Allergy status to analgesic agent; R74.01 Elevation of levels of liver transaminase levels; R22.1 Localized swelling, mass and lump, neck; D64.9 Anemia, unspecified
CPT/HCPCS: 36415; 71046; 76705; 80053; 81001; 81025; 82042; 82150; 82945; 83605; 83615; 83690; 83735; 84100; 84145; 84439; 84443; 85025; 85610; 85730; 86140; 87040; 87086; 87400; 87811; 89051; 94664; 96365; 96372; 96375; 99285; G0378; J0696; J1171; J1650; J1938; J2270; J2405; J2470; J3411; J7050; A9270

== ENCOUNTER → 2025-04-25 | Outpatient (BNVA) | payer MEDICAID, SELFPAY | END | disposition home or self-care (01) | PROVIDERS: PCP Nurse Practitioner Family; Referring Provider Nurse Practitioner Family; Visit Provider Nurse Practitioner Family | DX: Z71.2 Person consulting for explanation of examination or test findings (principal); J18.9 Pneumonia, unspecified organism; K70.30 Alcoholic cirrhosis of liver without ascites; M25.50 Pain in unspecified joint; Z76.89 Persons encountering health services in other specified circumstances; E66.9 Obesity, unspecified; Z68.30 Body mass index [BMI] 30.0-30.9, adult | CPT/HCPCS: 99214 ==

== ENCOUNTER → 2025-04-26 | Outpatient (CLI) | payer MEDICAID, SELFPAY ==
--- NOTE | 2025-04-26 | XR_ITS ---
Examination: PA lateral chest 2 views TECHNIQUE: Upright PA lateral chest 2 views Date and time: April 26, 2025 1246 hours Comparison April 17, 2025 INDICATIONS: History pneumonia leukocytosis FINDINGS: Moderate elevation right hemidiaphragm Subsegmental atelectasis in the right base and right middle lobe Normal heart size No lobar pneumonia IMPRESSION: Subsegmental atelectasis right base and right middle lobe
== END | disposition home or self-care (01) ==
LOC: CDIM 12:00
PROVIDERS: PCP Nurse Practitioner Family; Referring Provider Nurse Practitioner Family; Visit Provider Nurse Practitioner Family
DX: J98.11 Atelectasis (principal)
CPT/HCPCS: 71046

== ENCOUNTER → 2025-05-06 | Outpatient (BNVA) | payer MEDICAID, SELFPAY | END | disposition home or self-care (01) | PROVIDERS: PCP Nurse Practitioner Family; Referring Provider Nurse Practitioner Family; Visit Provider Nurse Practitioner Family | DX: J18.9 Pneumonia, unspecified organism (principal); E03.9 Hypothyroidism, unspecified; K70.11 Alcoholic hepatitis with ascites; R79.9 Abnormal finding of blood chemistry, unspecified | CPT/HCPCS: 99215 ==

== ENCOUNTER → 2025-05-10 | Outpatient (BNVA) | payer MEDICAID, SELFPAY | END | disposition home or self-care (01) | PROVIDERS: PCP Hospitalist; Referring Provider Hospitalist; Visit Provider Hospitalist | DX: E03.9 Hypothyroidism, unspecified (principal); K70.30 Alcoholic cirrhosis of liver without ascites ==

== ENCOUNTER → 2025-05-30 | Outpatient (BNVA) | payer MEDICAID, SELFPAY | END | disposition home or self-care (01) | PROVIDERS: PCP Nurse Practitioner Family; Referring Provider Nurse Practitioner Family; Visit Provider Nurse Practitioner Family | DX: E03.9 Hypothyroidism, unspecified (principal); K70.31 Alcoholic cirrhosis of liver with ascites; R11.2 Nausea with vomiting, unspecified; Z76.0 Encounter for issue of repeat prescription | CPT/HCPCS: 99212; G0463 ==

== ENCOUNTER 2025-07-21 12:46 | Emergency (ER) | payer MEDICAID, SELFPAY ==
[2025-07-21 13:22] VITALS: BP 130/67; PULSE 97; RESP 20; TEMP 36.9; O2SAT 97
--- NOTE | 2025-07-21 13:31 | XR_ITS ---
Examination: CT brain head without contrast. 2-D sagittal coronal reconstructions Date and time of exam:July 21, 2025, 1442 hrs. Indications: Altered mental status with auditory hallucinations beginning 3 days ago. CTDI: vol (mGy):49.9 DLP: (mGycm):1035 Technique: Multiple CT axial sections of the brain have been obtained, 5 mm slice thickness. Contrast has not been administered. 2-D sagittal, coronal reconstructions have been obtained Low dose protocols were performed. One or more of the following dose reduction techniques were used; automated exposure control, adjustment of the mA and/or KV according to patient size, use of iterative reconstruction technique. Findings: No significant ventricular enlargement. Intra-axial or extra-axial hemorrhage density is not seen. No mass effect or midline shift Basal cisterns are not remarkable. Fourth ventricle is midline. Cranial vault intact. Impression: Negative for acute hemorrhage, mass effect or midline shift Advise clinical correlation follow-up accordingly
--- NOTE | 2025-07-21 13:31 | EKG_ITS ---
[facility] Test Date: 2025-07-21 Pat Name: MALA ZHU Department: Room: - Gender: Female Acupuncture Physician: : 1980 Requested By: Delroy Story Order Number: [id number] Reading MD: Delroy Story Measurements Intervals [place] Rate: 84 P: 64 [place]: 160 QRS: 48 QRSD: 99 T: 35 QT: 343 QTc: 407 Interpretive Statements SINUS RHYTHM NONSPECIFIC T-WAVE ABNORMALITY No previous ECG available for comparison /store/S0/[id number].pdf
--- NOTE | 2025-07-21 13:31 | XR_ITS ---
Examination: AP chest single view Technique: AP portable semiupright chest single view Date and time: July 21, 2025, 1336 hrs., Comparison April 26, 2025. Indications: Coughing beginning 3 days ago. Findings: Minor prominence left ventricle. Mild elevation right hemidiaphragm. No pneumonia or pulmonary edema. Impression: No pneumonia or pulmonary edema.
[2025-07-21 14:01] LABS: Basophils # (Auto) 0.1 Thou/mm3 (0.0-0.2); Basophils % (Auto) 1 % (0-2.5); Eosinophils # (Auto) 0.0 Thou/mm3 (0.0-0.5); Eosinophils % (Auto) 0 % (0-10); Hematocrit 33.3 % (36.0-46.0); Hemoglobin 11.8 g/dL (12.0-16.0); Immature Granulocytes Auto 0.03 Thou/mm3 (0.00-0.00); Lymphocytes # (Auto) 1.9 Thou/mm3 (1.0-4.8); Lymphocytes % (Auto) 18 % (10-50); Mean Corpuscular HGB Conc 35.4 g/dl (31.0-37.0); Mean Corpuscular Hemoglobin 32.2 pg (25.0-35.0); Mean Corpuscular Volume 91 fL (80-100); Monocytes # (Auto) 1.4 Thou/mm3 (0.0-0.8); Monocytes % (Auto) 13 % (0-12); Neutrophils # (Auto) 7.3 Thou/mm3 (1.8-7.7); Neutrophils % (Auto) 68 % (37-80); Nucleated Red Blood Cell # 0.00 Thou/mm3 (0.00-0.00); Nucleated Red Blood Cell % 0 /100 WBC (0); Platelet Count 100 Thou/mm3 (140-440); RDW Standard Deviation 45.5 fL (36.4-46.3); Red Blood Count 3.66 Miln/mm3 (4.00-5.20); White Blood Count 10.8 Thou/mm3 (3.6-11.0)
[2025-07-21 14:24] VITALS: PULSE 96
[2025-07-21 14:24] LABS: Lactate (Lactic Acid) 1.4 mMol/L (0.4-2.0)
[2025-07-21 14:29] LABS: Ammonia < 10 uMol/L (11-32)
[2025-07-21 14:30] LABS: Acetaminophen 2.6 mcg/mL (10.0-20.0); Alanine Aminotransferase 65 U/L (10-49); Albumin, Serum 3.9 gm/dL (3.5-5.0); Albumin/Globulin Ratio 1.1 (1.2-2.2); Alcohol, Blood Medical < 3.0 mg/dL (0-10.0); Alkaline Phosphatase 201 U/L (46-116); Anion Gap 15 (7-16); Aspartate Amino Transferase 168 U/L (0-34); BUN/Creatinine Ratio 6 Ratio (12-20); Bilirubin,Total 4.2 mg/dL (0.3-1.2); Blood Urea Nitrogen < 5 mg/dL (9-23); Calcium 10.3 mg/dL (8.3-10.6); Calcium (Corrected) 10.4 mg/dL (8.5-10.1); Carbon Dioxide 30.4 mMol/L (20.0-31.0); Chloride 88 mMol/L (98-107); Creatinine (Component) 0.9 mg/dL (0.6-1.3); Estimated Creatinine Clearance 75.3 mL/min (>60); Globulin 3.6 gm/dL (2.3-3.5); Glucose 99 mg/dL (74-106); Magnesium 1.3 mg/dL (1.6-2.6); Osmolality,Calculated 263 (275-295); Salicylate < 3.0 mg/dL; Sodium 133 mMol/L (136-145); Total Protein 7.5 gm/dL (5.7-8.2); Troponin I 0.025 ng/mL (0.0-0.045); eGFR > 60 See Note
[2025-07-21 14:34] LABS: Potassium 2.7 mMol/L (3.4-5.1)
[2025-07-21 14:39] LABS: INR 1.4 (0.9-1.3); Partial Thromboplastin Time 27.1 Seconds (22.0-36.0); Prothrombin Time 15.2 Seconds (9.0-12.2)
--- NOTE | 2025-07-21 14:40 | PC.NURSE ---
PATIENT BROUGHT TO ROOM FROM FRONT, PATIENT WITH AUDIBLE HALLUCINATIONS. PATIENT STATES SHE HEARS VOICES AND HAS BEEN HEARING THEM SINCE APPROX 2AM. PATIENT STATES SHE CALLED 911 AT LEAST 6 TIMES LAST NIGHT AND THIS MORNING DUE TO THINKING SOMEONE WAS IN HER HOUSE. PER FRIEND AT BEDSIDE PATIENT CALLED HER AND WHEN SHE ARRIVED THIS MORNING AT 6AM PATIENT WAS ACTING BIZZARRE WHICH PER FRIEND WAS COMPLETELY OUT OF CHARACTER FOR HER. PATIENT STATES SHE HAD NOT BEEN SLEEPING WELL AND THAT SHE HAS BEEN UNDER MORE STRESS LATELY. PATIENT STATES SHE USE TO DRINK HEAVILY AND WAS 100 DAYS SOBER AND 4 DAYS AGO SHE DRANK WINE. PATIENT DENIES DRINKING RECENTLY. PATIENT ABLE TO FOLLOW COMMANDS AT TIME OF ASSESSMENT BUT IS CONCERNED BECAUSE SHE HEARS PEOPLE OUTSIDE OF THE ROOM TALKING ABOUT HER . PATIENT REASSURED THAT SHE IS SAFE THAT NO ONE IS OUTSIDE. PATIENT ABLE TO CALM SELF DOWN. PATIENT IN ROOM WITH CURTAIN OPEN AND CAN BE SEEN BY NURSES AT NURSES STATION. WILL CONTINUE TO MONITOR
[2025-07-21] MEDS: SODIUM CHLORIDE 0.9% 1000 ML 1,000 ML 100 ML IV (14:49)
--- NOTE | 2025-07-21 15:00 | PC.NURSE ---
PATIENT SITTING UP IN BED ABLE TO CARRY NORMAL CONVERSATION, STATES SHE STILL HEARS MUSIC BUT SEEMS TO BE CALMER AND NOT HALLUCINATING. PATIENT ABLE TO WALK WITH NORMAL GAIT TO RESTROOM AND PROVIDED URINE SAMPLE. PATIENT BACK ON [facility] WITH NO COMPLAINTS.
[2025-07-21 16:00] LABS: Collection Type, Urine Clean Catch
[2025-07-21 16:11] VITALS: BP 106/71; PULSE 79; RESP 18; TEMP 36.7; O2SAT 100
[2025-07-21] MEDS: POTASSIUM CHL 10 mEq IVPB 10 MEQ/100 ML BAG 100 MEQ IV ×4 (16:39→21:11)
[2025-07-21 16:43] LABS: Amphetamine/Methamp Scrn,U Negative (Negative); Barbiturate Screen,Urine Negative (Negative); Benzodiazepines Screen,Urine Negative (Negative); Benzoylecgonine Screen, Ur Negative (Negative); Fentanyl Screen,Urine Negative (Negative); Opiate Screen,Urine Negative (Negative); THC Screen,Urine Negative (Negative)
[2025-07-21 16:48] LABS: Bilirubin,Urine Negative (Negative); Blood,Urine Negative (Negative); Clarity,Urine Clear (Clear/Hazy); Color,Urine Lt-Yellow (Lt Yel-Yel); Glucose, Urine Negative (Negative); Ketones,Urine Negative (Negative); Leukocyte Esterase,Urine Negative (Negative); Nitrite,Urine Negative (Negative); PH,Urine 6.0 (5.0-7.0); Protein,Urine Negative (Neg - Trace); RBC,Urine 1 /hpf (0-3); Specific Gravity,Urine 1.004 (1.001-1.035); Squamous Epithelial Cell,Urine 2 /hpf (0-5); Urobilinogen,Urine Negative mg/dL (0.0-1.0); WBC,Urine 2 /hpf (0-5)
--- NOTE | 2025-07-21 16:54 | PD.RESEVENT ---
Documentation for date of: 07/21/25 Event Note Event Note: 45-year-old female with past medical history of decompensated liver cirrhosis, end-stage liver disease, hypothyroidism, asthma, generalized anxiety disorder, depression and microcytic anemia who presented to [facility] emergency department today with a chief complaint of confusion and generalized auditory hallucination. ED physician consulted hospitalist team for admission. Patient evaluated in the ED alert and oriented x 4 does endorse auditory hallucinations actively reports that she is hearing songs, otherwise physical exam within normal limits, patient did report that she had been sober for 100 days until about 10 days ago when she had a 5-day binge episode, patient does not seem to be actively withdrawing currently. She did endorse nausea vomiting and multiple episodes of emesis for the past few days. No blood in emesis, patient stable on room air vitals reviewed stable. Labs reviewed pertinent for hemoglobin 11.8, RBC 3.66, hematocrit 33.3, platelets 100, INR 1.4, PT 15.2 sodium 133, potassium 2.7, chloride 88, osmolality 263, calcium 10.4.3, bilirubin, AST 168, ALT 65. Blood alcohol negative level negative. Ammonia unremarkable CT head obtained in ED unremarkable Patient's currently does not need to be admitted for further workup, electrolytes can be repleted in ED which are likely secondary to volume losses from emesis and patient can be discharged after. Case discussed with Attending Physician Dr. Vero Spencer MD Internal Medicine PGY-2 Disclaimer: This note was dictated by speech recognition. Minor errors in uniform room attendant may be present due to voice recognition software.
--- NOTE | 2025-07-21 17:14 | EDNOTE_ITS ---
ED General RME/HPI General Chief complaint: General Adult/Misc Complain Stated complaint: JAUNDICED, HALLUCINATIONS, ST 4 LIVER DS Time Seen by Provider: 07/21/25 13:28 Arrival date/time: 07/21/25 12:46 Limitations: no limitations RME / HPI RME / HPI narrative: 45 year old female with history of liver cirrhosis, alcohol use disorder, hypothyroidism, s/p gastric bypass presents to the ED BIBA from home for evalu ation of lesions to lips that began yesterday and hallucinations today. Patient denies any lesions to her mouth or throat though does report I feel like I have an infection in my throat . Denies fevers, chills, sweats, cough, abdominal pain, n/v/d, or urinary symptoms. During my interview with the patient, she is seeing people talking about her and hearing music that is not present. Denies any suicidal or homicidal ideation. Denies drinking alcohol. Related Data Previous Rx's ?Medication ?Instructions ?Recorded albuterol sulfate 90 mcg/actuation 2 inh inhalation Q6 H PRN shortness 01/22/25 aerosol inhaler of breath or wheezing #8.5 g amanda folic acid 1 mg tablet 1 mg PO QDAY #90 tabs furosemide 20 mg tablet 20 mg PO QDAY #90 tabs 05/30 levothyroxine 125 mcg tablet 125 mcg PO QDAY #90 tabs 05/30/25 spironolactone 50 mg tablet See Rx Instructions .Route 05/30/25 .COMPLEX #90 tabs Allergies Allergy/AdvReac Type Severity Reaction Status Date / Time NSAIDS (Non-Steroidal Allergy Severe BLOOD NOSE Verified 07/21/25 12:48 Anti-Inflamma Review of Systems Review of Systems Systems Reviewed: All systems reviewed, normal except as documented Past Medical History Past Medical History CARDIAC: Positive Edema, Hypertension and Hypotension RESPIRATORY: Positive Asthma GASTROINTESTINAL: Positive Gastrointestinal Disorders and Obesity ENDOCRINE: Positive Hypothyroidism PSYCHO/SOCIAL: Positive Depression and Anxiety Surgical History SURGICAL: Positive Abdominal Surgery and Gastric Bypass Surgery Social History SMOKING STATUS: Never smoker SECOND HAND EXPOSURE: No ED Exam General Limitations: Present no limitations General appearance: Present alert and other (actively hallucinating during my interview ) Head Head exam: Present atraumatic, normocephalic and normal inspection Eye Eye exam: Present normal appearance, PERRL and EOMI ENT ENT exam: Present mucous membranes moist and other (There are a few small red erosions in the upper lips, around the erosions there is mild erythema and edema. No exudates or lesions in throat. ) Neck Neck exam: Present normal inspection, full ROM and trachea midline Chest Chest inspection: Present normal inspection and symmetric chest wall rise Respiratory Respiratory exam: Present normal lung sounds bilaterally Cardiovascular Cardiovascular exam: Present regular rate, normal rhythm and normal heart sounds Abdominal Exam Abdominal exam: Present soft and normal bowel sounds Extremities Exam Extremities exam: Present normal inspection and full ROM Back Exam Back exam: Present normal inspection and full ROM Neurological Exam Neurological exam: Present alert, oriented X3 and CN II-XII intact Psychiatric Psychiatric exam: Present other (Actively hallucinating ) Skin Skin exam: Present warm, dry, intact and normal color Course Quality Measures none Orders Category Date Time Status Bedside Blood Glucose NOW Care 07/21/25 13:33 Active Bedside COVID-19 Antigen Test NOW Care 07/21/25 13:55 Active Bedside Influenza A&B Antigen Test NOW Care 07/21/25 13:55 Completed COVID-19 Screening Questionnaire NOW Care 07/21/25 16:06 Active Card Processing Clerk NOW Care 07/21/25 13:31 Active Continuous Pulse Oximetry NOW Care 07/21/25 13:31 Completed Decision to Admit X1 Care 07/21/25 16:06 Completed EKG (ED ONLY) *Do not use* NOW Care 07/21/25 13:31 Completed Insert IV NOW Care 07/21/25 13:31 Active NPO NOW Care 07/21/25 13:[address] head/brain wo con Stat Exams 07/21/25 13:31 Completed EKG (ED Only) Stat Exams 07/21/25 13:31 Draft XR chest 1V portable Stat Exams 07/21/25 13:31 Completed Acetaminophen Stat Lab 07/21/25 13:39 Completed Alcohol, Blood Medical Stat Lab 07/21/25 13:39 Completed Ammonia Stat Lab 07/21/25 13:39 Completed Blood Culture (Lab) Stat Lab 07/21/25 14:18 Received CBC Stat Lab 07/21/25 13:39 Completed Comprehensive Metabolic Panel Stat Lab 07/21/25 13:39 Completed Drug Screen,Urine Stat Lab 07/21/25 15:35 Completed Folate Stat Lab 07/21/25 14:18 Completed Free T4 (Free Thyroxine) Stat Lab 07/21/25 13:39 Completed Lactic Acid [Lactate (Lactic Acid)] Stat Lab 07/21/25 14:18 Completed Magnesium Stat Lab 07/21/25 13:39 Completed Partial Thromboplastin Time Stat Lab 07/21/25 13:39 Completed Prothrombin Time with INR Stat Lab 07/21/25 13:39 Completed Salicylate Stat Lab 07/21/25 13:39 Completed Strep A Rapid Stat Lab 07/21/25 13:55 Ordered Thyroid Stimulating Hormone Stat Lab 07/21/25 13:39 Completed Troponin I Stat Lab 07/21/25 13:39 Completed Urinalysis Stat Lab 07/21/25 15:35 Completed Vitamin B12 Stat Lab 07/21/25 14:18 Completed Magnesium Sulfate 2 GM Ivpb [Magnesium Sulfate Ivpb] Med 07/21/25 18:58 Discontinued 2 gm in 50 ml IV X1 POTASSIUM CHL 10 mEq IVPB [Kcl Ivpb] Med 07/21/25 15:29 Discontinued 10 meq in 100 ml IV Q1H Potassium Chloride [K-Dur] Med 07/21/25 15:28 Discontinued 40 meq PO X1 ONE Potassium Chloride [K-Dur] Med 07/21/25 17:41 Discontinued 40 meq PO X1 ONE Sodium Chloride 0.9% 1000 ml [Ns] 1,000 ml Med 07/21/25 13:31 Active IV 100 mls/hr Vital Signs Vital signs: Vital Signs Temperature 98.4 F 07/21/25 13:22 Pulse Rate 97 07/21/25 13:22 Respiratory Rate 20 07/21/25 13:22 Blood Pressure 130/67 07/21/25 13:22 Pulse Oximetry (%) 97 07/21/25 13:22 Oxygen Delivery Method Room Air 07/21/25 13:22 Pulse ox is 97% on room air which is adequate. Critical Care Time Critical Care Time Critical Care Time: Yes Total Critical Care Time (min.): 60 Attestation: The high probability of sudden, clinically significant deterioration in the patient's condition required the highest level of my preparedness to intervene urgently. The services I provided to this patient were to treat and/or prevent clinically significant deterioration. Services included the following: chart data review, reviewing nursing notes and/or old charts, documentation time, consultant teacher collaboration regarding findings and treatment options, medication orders and management, direct patient care, vital sign assessments and ordering, interpreting and reviewing diagnostic studies and lab tests. Aggregate critical care time includes only time during which I was engaged in work directly related to the patient's care, as described above, whether at bedside or elsewhere in the Emergency Department. It did not include time spent performing other reported procedures or the services of residents, students, nurses or physician assistants. Discharge Plan Plan Patient Disposition: HOME (Self Care) Prescriptions/Referrals Prescriptions/Med Rec: No Action folic acid 1 mg tablet 1 mg PO QDAY Qty: 90 0RF furosemide 20 mg tablet 20 mg PO QDAY Qty: 90 0RF levothyroxine 125 mcg tablet 125 mcg PO QDAY Qty: 90 0RF spironolactone 50 mg tablet See Rx Instructions .ROUTE .COMPLEX Qty: 90 0RF Dose Instruction: TAKE 1 TABLET BY MOUTH EVERY DAY Rx Instructions: TAKE 1 TABLET BY MOUTH EVERY DAY albuterol sulfate 90 mcg/actuation HFA aerosol inhaler 2 inh inhalation Q6H PRN (Reason: shortness of breath or wheezing) Qty: 8.5 3RF Referrals: Misty [facility] [employer],Korina Alvarez [employer] SALES [employer]OCIATE [Primary Care Provider] - In 1 week Problem List Clinical Impression: Hallucination, Paranoid ideation, Alcoholic cirrhosis, Hypokalemia Patient/Caregiver Discharge Instructions Education Materials: ED Cirrhosis, ED Hypokalemia Additional Instructions: Follow up with PCP for consideration of psychiatric and neurology evaluation for the hallucinations. You can return to the emergency department sooner if symptoms worsen or if you notice any new, concerning issues. Print Language: Mauritanian Stand Alone Forms: Kya Award Info., Patient Portal Info Letter MDM Narrative [facility] hospital course: IGrazyna, am scribing for and in the presence of Dr. Crowell. Clinical Information Provided by patient Medical Records Reviewed [facility] Meds/Rx Considered, not Ordered None Labs/Rad/Tests considered, not Ordered None Chronic Illness/Social Conditions which may negatively complicate care or outcome(s)-explain: Liver disease EKG EKG Interpretation narrative: 07/21/2025 @ 13:45. NSR, rate 84, no acute ischemic changes. Lab Interpretation Labs: interpreted by me Lab(s) interpretation(s): Potassium 2.7 Total bili 4.2 though is chronically elevated dating back to 03/27/2025 Imaging Radiology reports / interpretation(s): Ordering Physician: Delroy Crowell MD Date of Service: 07/21/25 Procedure(s): XR chest 1V portable Accession Number(s): [id number] cc: Delroy Crowell MD; Aleksey Rebolledo MD~ Examination: AP chest single view Technique: AP portable semiupright chest single view Date and time: July 21, 2025, 1336 hrs., Comparison April 26, 2025. Indications: Coughing beginning 3 days ago. Findings: Minor prominence left ventricle. Mild elevation right hemidiaphragm. No pneumonia or pulmonary edema. Impression: No pneumonia or pulmonary edema. Dictated By: Aleksey Rebolledo MD Signed By: <Electronically signed by Aleksey Rebolledo MD in OV> 07/21/25 1414 Ordering Physician: Delroy Crowell MD Date of Service: 07/21/25 Procedure(s): CT head/brain wo con Accession Number(s): [id number] cc: Delroy Crowell MD; Aleksey Rebolledo MD; Korina Jay ([facility])~ Examination: CT brain head without contrast. 2-D sagittal coronal reconstructions Date and time of exam:July 21, 2025, 1442 hrs. Indications: Altered mental status with auditory hallucinations beginning 3 days ago. CTDI: vol (mGy):49.9 DLP: (mGycm):1035 Technique: Multiple CT axial sections of the brain have been obtained, 5 mm slice thickness. Contrast has not been administered. 2-D sagittal, coronal reconstructions have been obtained Low dose protocols were performed. One or more of the following dose reduction techniques were used; automated exposure control, adjustment of the mA and/or KV according to patient size, use of iterative reconstruction technique. Findings: No significant ventricular enlargement. Intra-axial or extra-axial hemorrhage density is not seen. No mass effect or midline shift Basal cisterns are not remarkable. Fourth ventricle is midline. Cranial vault intact. Impression: Negative for acute hemorrhage, mass effect or midline shift Advise clinical correlation follow-up accordingly Dictated By: Aleksey Rebolledo MD Signed By: <Electronically signed by Aleksey Rebolledo MD in OV> 07/21/25 1548 Medication Administration(s) Medication Administration History Sodium Chloride (Ns) 1,000 mls @ 100 mls/hr IV .Q10H ONE Stop: 07/21/25 23:30 Last Admin: 07/21/25 14:49 Dose: 100 mls/hr Documented By: SHAMEKA Discontinued Medications Potassium Chloride (Kcl Ivpb) 10 meq in 100 mls @ 100 mls/hr IV Q1H EDWINA Stop: 07/21/25 19:28 Last Admin: 07/21/25 21:11 Dose: 100 mls/hr Documented By: Infusion: 07/21/25 20:55 Dose: Infused Documented By: Admin: 07/21/25 19:55 Dose: 100 mls/hr Documented By: Infusion: 07/21/25 18:48 Dose: Infused Documented By: Admin: 07/21/25 17:48 Dose: 100 mls/hr Documented By: Infusion: 07/21/25 17:39 Dose: Infused Documented By: Admin: 07/21/25 16:39 Dose: 100 mls/hr Documented By: SHAMEKA Magnesium Sulfate (Magnesium Sulfate Ivpb) 2 gm in 50 mls @ 25 mls/hr IV X1 ONE Stop: 07/21/25 20:57 Last Admin: 07/21/25 19:51 Dose: 25 mls/hr Documented By: HAROLDO Potassium Chloride (Potassium Chloride 20 Meq Tabcr) 40 meq PO X1 ONE Stop: 07/21/25 15:29 Last Admin: 07/21/25 16:48 Dose: 40 meq Documented By: SHAMEKA Potassium Chloride (Potassium Chloride 20 Meq Tabcr) 40 meq PO X1 ONE Stop: 07/21/25 17:42 Last Admin: 07/21/25 18:34 Dose: 40 meq Documented By: SHAMEKA See above Consultations/Discussions re: Management Consult #1: Date/time: 07/21/25 Physician, specialty, service, details: I spoke with hospitalist team B regarding admission. States they have evaluated the patient in the ED and recommend discharge home with outpatient follow up. Diagnosis Most likely dx, and/or detailed dx discussion: Hallucination Paranoid ideation alcoholic cirrhosis Hypokalemia Dispositon Disposition: Discharge Home
[2025-07-21 17:58] LABS: Folate > 24.00 ng/mL (>5.38); Vitamin B12 1423 pg/mL (211-911)
[2025-07-21 18:00] VITALS: BP 106/81; PULSE 90; RESP 16; O2SAT 99
[2025-07-21 18:15] LABS: Free T4 (Free Thyroxine) 1.34 ng/dL (0.89-1.76); Thyroid Stimulating Hormone 1.80 uIU/mL (0.55-4.78)
[2025-07-21 18:41] VITALS: BP 99/62; PULSE 71; RESP 18; TEMP 36.7; O2SAT 96
--- NOTE | 2025-07-21 18:44 | PC.NURSE ---
NURSE IN AND OUT OF ROOM DURING VISIT AND PATIENT ACTING APPROPRIATELY, DOES STATES SHE HEARS MUSIC BUT NO VOICES AT THIS TIME. PATIENT IS GETTING POTASSIUM WITH NO COMPLAINTS. PATIENT SLEEPING AT THIS TIME.
[2025-07-21] MEDS: Magnesium Sulfate 2 GM Ivpb 2 GM/50 ML BAG IV (19:51)
--- NOTE | 2025-07-21 20:29 | PC.NURSE ---
Clarified with Dr. Fields order for potassium-States to give all 4 bags of potassium and is aware of po potassium administered
--- NOTE | 2025-07-21 21:23 | PD.EDADDENDU ---
Emergency Room Addendum <Deisi Balderas - Last Filed: 07/21/25 21:24> Addendum Narrative: 1800: Care assumed from Dr. Crowell (emergency physician). Past medical, surgical, social and family history reviewed. Vitals and home medications reviewed. Results and treatment plan discussed. I will assume the care of the patient at this time and will follow the patient, pending potassium treatment. The following addendum documentation note is intended to reflect any pending information, findings, or radiology results not included in the patient?s initial chart by the previous shift scribe. <Ariel Farrell FieldsDO - Last Filed: 07/21/25 22:52> Addendum Narrative: 1800: Care assumed from Dr. Crowell (emergency physician). Past medical, surgical, social and family history reviewed. Vitals and home medications reviewed. Results and treatment plan discussed. I will assume the care of the patient at this time and will follow the patient, pending potassium treatment. The following addendum documentation note is intended to reflect any pending information, findings, or radiology results not included in the patient?s initial chart by the previous shift scribe. Patient completed 80 mEq of potassium chloride p.o. and a total of 40 mill equivalents of potassium chloride through the IV as well as mag sulfate 2 g IV. She is walking without difficulty. She is alert. She is oriented. She owns a home here in [place] where she lives. She is currently oriented at this time. She is stable for discharge with stable vital signs.
[2025-07-21 23:01] VITALS: BP 126/70; PULSE 67; RESP 19; TEMP 37.2; O2SAT 98
== END 2025-07-21 23:03 | disposition home or self-care (01) ==
PROVIDERS: Emergency Provider Family Medicine; PCP Nurse Practitioner Family
DX: K70.30 Alcoholic cirrhosis of liver without ascites (principal); R44.0 Auditory hallucinations; R05.9 Cough, unspecified; F60.0 Paranoid personality disorder; E87.6 Hypokalemia; I10 Essential (primary) hypertension; R94.31 Abnormal electrocardiogram [ECG] [EKG]
CPT/HCPCS: 36415; 70450; 71045; 80053; 80307; 80320; 80329; 81001; 82140; 82607; 82746; 83605; 83735; 84439; 84443; 84484; 85025; 85610; 85730; 87040; 87400; 87651; 87811; 93005; 96361; 96365; 96366; 99284; J3475; J3480; J7030; A9270; G0480

== ENCOUNTER → 2025-07-24 | Outpatient (BNVA) | payer MEDICAID, SELFPAY | END | disposition home or self-care (01) | PROVIDERS: PCP Nurse Practitioner Primary Care; Referring Provider Nurse Practitioner Primary Care; Visit Provider Nurse Practitioner Primary Care | DX: Z09 Encounter for follow-up examination after completed treatment for conditions other than malignant neoplasm (principal); K70.30 Alcoholic cirrhosis of liver without ascites; R44.3 Hallucinations, unspecified; Z23 Encounter for immunization; F33.1 Major depressive disorder, recurrent, moderate | CPT/HCPCS: 90471; 90633; 99213 ==

== ENCOUNTER → 2025-07-25 | Outpatient (BNVA) | payer MEDICAID, SELFPAY | END | disposition home or self-care (01) | PROVIDERS: PCP Nurse Practitioner Primary Care; Referring Provider Nurse Practitioner Primary Care; Visit Provider Nurse Practitioner Primary Care | DX: Z23 Encounter for immunization (principal) | CPT/HCPCS: 90633; 99213 ==

== ENCOUNTER → 2025-08-02 | Outpatient (BNVA) | payer MEDICAID, SELFPAY | END | disposition home or self-care (01) | PROVIDERS: PCP Nurse Practitioner Family; Referring Provider Nurse Practitioner Family; Visit Provider Nurse Practitioner Family | DX: Z71.3 Dietary counseling and surveillance (principal); E66.9 Obesity, unspecified; G47.00 Insomnia, unspecified | CPT/HCPCS: 99212; G0463 ==

== ENCOUNTER 2025-08-29 01:47 | Emergency (ER) | payer MEDICAID, SELFPAY ==
[2025-08-29 01:48] VITALS: BMI 27.6
[2025-08-29 02:16] VITALS: BP 139/85; PULSE 108; RESP 16; TEMP 37; O2SAT 97
--- NOTE | 2025-08-29 02:37 | XR_ITS ---
Examination: CT lumbar spine, without contrast. 2-D sagittal reconstructions. 2-D coronal reconstructions. 3-D reconstructions. Date and time of exam: August 29, 2025, 0350 hours INDICATIONS: Ground-level fall today with injury to lower back, lower back pain. CTDI: vol (mGy): 21.9 DLP: (mGycm): 614 Technique: Multiple 1.25 mm axial sections of the lumbar spine without intravenous contrast have been obtained. 2-D sagittal and coronal reconstructions have been obtained. 3-D reconstructions have been obtained. Low dose protocols were performed. One or more of the following dose reduction techniques were used; automated exposure control, adjustment of the mA and/or KV according to patient size, use of iterative reconstruction technique. Findings: No lumbar vertebral body compression fracture on the lateral view Grade 1 spondylolisthesis L5 on S1 Advanced degenerative disc disease L5-S1 Lumbar pedicles, laminae, transverse and posterior spinous processes intact L5-S1 grade 1 spondylolisthesis produces mild bilateral L5 ganglionic compression More cephalad levels demonstrate no focal lumbar disc protrusions IMPRESSION: No lumbar fracture L5-S1 grade 1 spondylolisthesis produces mild bilateral L5 ganglionic compression Advanced degenerative disc disease L5-S1
--- NOTE | 2025-08-29 02:37 | XR_ITS ---
Examination: CT cervical spine without contrast 2-D sagittal reconstructions 2-D coronal reconstructions 3-D reconstructions. Exam date and time: August 29, 2025, 0347 hours INDICATIONS: Ground-level fall 4 days ago with injury to the neck, neck pain CTDI:vol (mGy) 15 DLP: (mGycm) 291 Technique: Multiple 2 mm axial sections of the cervical spine have been obtained. The coronal and sagittal reconstructions have been obtained. 3-D reconstructions have been obtained. Low dose protocols were performed. One or more of the following dose reduction techniques were used; automated exposure control, adjustment of the mA and/or KV according to patient size, use of iterative reconstruction technique. Findings: Patient motion degrades scan image quality No gross fracture or dislocation IMPRESSION: Patient motion significantly degrades scan image quality No gross fracture Repeat this study as clinically warranted
--- NOTE | 2025-08-29 02:37 | XR_ITS ---
Examination: CT brain head without contrast. 2-D sagittal coronal reconstructions Date and time of exam: August 29, 2025, 0347 hours INDICATIONS: Ground-level fall today with injury to the head, head pain CTDI: vol (mGy): 53.1 DLP: (mGycm): 1046 Technique: Multiple CT axial sections of the brain have been obtained, 5 mm slice thickness. Contrast has not been administered. 2-D sagittal, coronal reconstructions have been obtained Low dose protocols were performed. One or more of the following dose reduction techniques were used; automated exposure control, adjustment of the mA and/or KV according to patient size, use of iterative reconstruction technique. Findings: No significant ventricular enlargement. Intra-axial or extra-axial hemorrhage density is not seen. No mass effect or midline shift Basal cisterns are not remarkable. Fourth ventricle is midline. Cranial vault intact. Impression: Negative for acute hemorrhage, mass effect or midline shift
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
[2025-08-29 03:21] LABS: Amphetamine/Methamp Scrn,U Negative (Negative); Barbiturate Screen,Urine Negative (Negative); Benzodiazepines Screen,Urine Negative (Negative); Benzoylecgonine Screen, Ur Negative (Negative); Fentanyl Screen,Urine Negative (Negative); Opiate Screen,Urine Negative (Negative); THC Screen,Urine Negative (Negative)
[2025-08-29 03:25] LABS: HCG Qualitative,Urine Negative
--- NOTE | 2025-08-29 04:29 | PRELIM_ITS ---
CT scan of the cervical spine without intravenous contrast (axial sections with sagittal and coronal reformats) August 29, 2025 0347 hours Clinical History: Fall. Comparison: None available at the time of this report. Findings: There is no fracture or subluxation. The prevertebral soft tissues are unremarkable. Loss of the physiologic cervical lordosis. Impression: No evidence of fracture or subluxation. Report Electronically Signed By: Faraz Washington 08/29/2025 4:28:49 AM [EST]
--- NOTE | 2025-08-29 04:35 | PRELIM_ITS ---
CT scan of the lumbar spine without intravenous contrast (axial sections with sagittal and coronal reformats) August 29, 2025 0350 hours Clinical History: Fall. Comparison: No prior study is available for comparison. Findings: There is no fracture or subluxation. The vertebral body heights are normal. The soft tissues are unremarkable. Mild posterior discal bulging L3-L4, L4-5, and L5-S1. No evidence of spinal canal stenosis or neuroforaminal narrowing. Bilateral L5 pars defects associated with mild anterolisthesis of L5. Impression: No acute fractures. Report Electronically Signed By: Faraz Washington 08/29/2025 4:35:09 AM [EST]
--- NOTE | 2025-08-29 04:39 | PRELIM_ITS ---
CT scan of the head without intravenous contrast (axial sections with sagittal and coronal reformats) August 29, 2025 at 0347 hours Clinical History: Fall. Comparison: None available at the time of this report. Findings: No evidence of intracranial hemorrhage, mass effect or midline shift. The ventricles and CSF spaces are unremarkable. The calvarium is intact. The mastoid air cells are clear. Mucous inclusion cyst in the right maxillary sinus. Impression: No evidence of intracranial hemorrhage, midline shift or calvarial fracture. Report Electronically Signed By: Faraz Washington 08/29/2025 4:38:12 AM [EST]
== END 2025-08-29 05:03 | disposition home or self-care (01) ==
PROVIDERS: Physician Assistant; Emergency Provider Emergency Medicine; PCP Nurse Practitioner Family
DX: S30.0XXA Contusion of lower back and pelvis, initial encounter (principal); S19.9XXA Unspecified injury of neck, initial encounter; S09.90XA Unspecified injury of head, initial encounter; W01.0XXA Fall on same level from slipping, tripping and stumbling without subsequent striking against object, initial encounter
CPT/HCPCS: 70450; 72125; 72131; 80307; 81025; 99284; A9270

== ENCOUNTER 2025-10-27 22:35 | Emergency (ER) | payer MEDICAID, SELFPAY ==
[2025-10-27 22:37] VITALS: BMI 28.3
[2025-10-27 22:43] VITALS: BP 131/86; PULSE 99; RESP 18; TEMP 36.9; O2SAT 97
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
[2025-10-28 01:02] LABS: Basophils # (Auto) 0.1 Thou/mm3 (0.0-0.2); Basophils % (Auto) 2 % (0-2.5); Eosinophils # (Auto) 0.1 Thou/mm3 (0.0-0.5); Eosinophils % (Auto) 1 % (0-10); Hematocrit 34.1 % (36.0-46.0); Hemoglobin 11.2 g/dL (12.0-16.0); Immature Granulocytes Auto 0.02 Thou/mm3 (0.00-0.00); Lymphocytes # (Auto) 2.3 Thou/mm3 (1.0-4.8); Lymphocytes % (Auto) 32 % (10-50); Mean Corpuscular HGB Conc 32.8 g/dl (31.0-37.0); Mean Corpuscular Hemoglobin 33.6 pg (25.0-35.0); Mean Corpuscular Volume 102 fL (80-100); Monocytes # (Auto) 1.0 Thou/mm3 (0.0-0.8); Monocytes % (Auto) 13 % (0-12); Neutrophils # (Auto) 3.8 Thou/mm3 (1.8-7.7); Neutrophils % (Auto) 52 % (37-80); Nucleated Red Blood Cell # 0.00 Thou/mm3 (0.00-0.00); Nucleated Red Blood Cell % 0 /100 WBC (0); RDW Standard Deviation 53.4 fL (36.4-46.3); Red Blood Count 3.33 Miln/mm3 (4.00-5.20); White Blood Count 7.2 Thou/mm3 (3.6-11.0)
[2025-10-28 01:04] LABS: Platelet Count 64 Thou/mm3 (140-440)
[2025-10-28 01:10] LABS: Alanine Aminotransferase 38 U/L (10-49); Albumin, Serum 3.5 gm/dL (3.5-5.0); Albumin/Globulin Ratio 0.8 (1.2-2.2); Alkaline Phosphatase 225 U/L (46-116); Anion Gap 8 (7-16); Aspartate Amino Transferase 176 U/L (0-34); BUN/Creatinine Ratio 19 Ratio (12-20); Bilirubin,Total 2.6 mg/dL (0.3-1.2); Blood Urea Nitrogen 13 mg/dL (9-23); Calcium 8.5 mg/dL (8.3-10.6); Calcium (Corrected) 8.9 mg/dL (8.5-10.1); Carbon Dioxide 29.6 mMol/L (20.0-31.0); Chloride 105 mMol/L (98-107); Creatinine (Component) 0.7 mg/dL (0.6-1.3); Estimated Creatinine Clearance 98.9 mL/min (>60); Globulin 4.4 gm/dL (2.3-3.5); Glucose 124 mg/dL (74-106); Osmolality,Calculated 286 (275-295); Potassium 3.6 mMol/L (3.4-5.1); Sodium 143 mMol/L (136-145); Total Protein 7.9 gm/dL (5.7-8.2); eGFR > 60 See Note
--- NOTE | 2025-10-28 01:34 | PRELIM_ITS ---
Left breast ultrasound. October 28, 2025 at 0023 hours Clinical history: Hematoma. Comparison: No prior study is available for comparison. Findings: Ill-defined hypoechoic collection noted in left breast antiradial at 3 o clock position measuring approximately 3.7 x 3.6 x 1.9 cm with surrounding hyperechoic fat. The remainder of the parenchyma demonstrates normal echotexture. The retroareolar region appears unremarkable. Impression: Ill-defined hypoechoic collection in left breast antiradial at 3 o clock position with surrounding hyperechoic fat. Possible differentials include- a. Breast abscess If patient presents with fever. b. Ill-defined breast hematoma in case of trauma. Recommend clinical correlation. DISCLAIMER: Neoplasms may be obscured by fibrocystic changes or dense breast tissue and can occasionally be undetectable even in fatty breasts. A negative report should not deter biopsy if a clinically suspicious mass is present. If a patient falls within a Rosario Risk Assessment Category greater than 15%, MRI may be indicated. Correlate the clinical and family history recommendation via the primary care physician. Discussion Details: Results verbally communicated to : Dr. Mendiola at 01:22 AM 10/28/2025 Report Electronically Signed By: Seema Kaur 10/28/2025 1:33:53 AM [EST]
[2025-10-28 02:11] LABS: Slide Review Platelets confirmed
[2025-10-28 04:23] LABS: Collection Type, Urine Clean Catch
[2025-10-28 04:56] LABS: HCG Qualitative,Urine Negative
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
[2025-10-28 05:17] LABS: Amorphous Crystals,Urine Present (Absent); Bacteria,Urine Rare; Bilirubin,Urine Negative (Negative); Blood,Urine Negative (Negative); Clarity,Urine Clear (Clear/Hazy); Color,Urine Yellow (Lt Yel-Yel); Glucose, Urine Negative (Negative); Ketones,Urine Negative (Negative); Leukocyte Esterase,Urine Negative (Negative); Nitrite,Urine Negative (Negative); PH,Urine 6.0 (5.0-7.0); Protein,Urine Negative (Neg - Trace); RBC,Urine 2 /hpf (0-3); Specific Gravity,Urine 1.019 (1.001-1.035); Squamous Epithelial Cell,Urine 1 /hpf (0-5); Urobilinogen,Urine 4.0 mg/dL (0.0-1.0); WBC,Urine 2 /hpf (0-5)
[2025-10-28 06:04] VITALS: BP 118/76; PULSE 76; RESP 16; TEMP 36.7; O2SAT 98
== END 2025-10-28 06:05 | disposition home or self-care (01) ==
PROVIDERS: Nurse Practitioner Family; Emergency Provider Emergency Medicine; PCP Nurse Practitioner Family
DX: S20.02XA Contusion of left breast, initial encounter (principal); S20.212A Contusion of left front wall of thorax, initial encounter; Y04.0XXA Assault by unarmed brawl or fight, initial encounter
CPT/HCPCS: 36415; 71101; 76641; 80053; 81001; 81025; 85025; 99283

== ENCOUNTER → 2025-11-06 | Outpatient (BNVA) | payer MEDICAID, SELFPAY | END | disposition home or self-care (01) | PROVIDERS: PCP Nurse Practitioner Family; Referring Provider Nurse Practitioner Family; Visit Provider Nurse Practitioner Family | DX: Z23 Encounter for immunization (principal); S20.02XA Contusion of left breast, initial encounter; Z09 Encounter for follow-up examination after completed treatment for conditions other than malignant neoplasm; Z91.199 Patient's noncompliance with other medical treatment and regimen due to unspecified reason; Y09 Assault by unspecified means; Z28.9 Immunization not carried out for unspecified reason | CPT/HCPCS: 90471; 90715; 99214 ==